=== PATIENT | female | born 1950 | race Caucasian/White ===

== ENCOUNTER → 2021-02-22 18:04 | Outpatient (CLI) | payer MEDICARE, SELFPAY ==
[2021-02-22 19:33] LABS: Basophils # 0.1 K/mm3 (0-0.2); Basophils % 1.4 % (0.1-2.0); Eosinophils # 0.5 K/mm3 (0.0-0.4); Eosinophils % 5.7 % (0.1-12.0); Hemoglobin 16.3 g/dL (12.2-16.2); Lymphocytes # 2.2 K/mm3 (0.7-4.5); Lymphocytes % 22.6 % (10-50); Mean Corpuscular HGB Conc 33.9 g/dL (31.8-35.4); Mean Corpuscular Hemoglobin 30.4 pg (27.0-31.2); Mean Corpuscular Volume 89.5 fl (81-99); Monocytes # 0.6 K/mm3 (0.1-1.0); Neutrophils # 6.1 K/mm3 (1.8-7.8); Neutrophils % 64.3 % (37.0-80.0); Platelet Count 281 K/mm3 (142-424); Red Blood Count 5.36 M/mm3 (4.20-5.40); Red Cell Distribution Width 14.4 % (11.5-17.5); White Blood Count 9.5 K/mm3 (4.8-10.8)
[2021-02-22 19:46] LABS: Alanine Aminotransferase 24 U/L (12-78); Albumin Level 4.5 g/dl (3.5-5.0); Albumin/Globulin Ratio 1.7 (1.1-1.8); Alkaline Phosphatase 71 U/L (38-126); Anion Gap 16.3 mEq/L (5-15); Aspartate Amino Transferase 31 U/L (14-36); Bilirubin,Total 0.8 mg/dl (0.2-1.3); Blood Urea Nitrogen 22 mg/dl (7-17); Calcium 9.8 mg/dl (8.4-10.2); Carbon Dioxide 30 mmol/L (22.0-30.0); Chloride 97 mmol/L (98-107); Chol/HDL Ratio 3.2 (1-3.5); Cholesterol 180 mg/dl (140-200); Estimated Glomerular Filt Rate 70 ml/min (>60); GFR (African American) 85 ML/MIN (>60); Globulin 2.6 g/dL (1.3-3.2); Glucose 76 mg/dl (74-100); HDL Cholesterol 57 mg/dl (40-60); Potassium 4.3 mmoL/L (3.5-5.1); Sodium 139 mmol/L (136-145); Total Protein,Serum 7.1 g/dl (6.3-8.2); Triglycerides 82 mg/dl (30-150); VLDL Cholesterol 16 mg/dL (0-40)
[2021-02-22 20:16] LABS: Thyroid Stimulating Hormone 4.04 uIU/mL (0.465-4.68)
== END ==
PROVIDERS: Visit Provider Family Medicine
DX: Z00.00 Encounter for general adult medical examination without abnormal findings (principal); R09.89 Other specified symptoms and signs involving the circulatory and respiratory systems; I10 Essential (primary) hypertension; Z79.899 Other long term (current) drug therapy
CPT/HCPCS: 80053; 80061; 84443; 85025

== ENCOUNTER → 2023-02-21 11:00 | Outpatient (CLI) | payer MEDICARE, SELFPAY ==
[2023-02-21 18:17] LABS: Basophils # 0.1 K/mm3 (0-0.2); Basophils % 1.1 % (0.1-2.0); Eosinophils # 0.7 K/mm3 (0.0-0.4); Eosinophils % 8.4 % (0.1-12.0); Hematocrit 48.9 % (37.0-47.0); Hemoglobin 15.5 g/dL (12.2-16.2); Lymphocytes # 1.9 K/mm3 (0.7-4.5); Lymphocytes % 23.6 % (10-50); Mean Corpuscular HGB Conc 31.6 g/dL (31.8-35.4); Mean Corpuscular Hemoglobin 28.8 pg (27.0-31.2); Mean Corpuscular Volume 91.1 fl (81-99); Mean Platelet Volume 9.6 fl (7.4-10.4); Monocytes # 0.6 K/mm3 (0.1-1.0); Neutrophils # 4.8 K/mm3 (1.8-7.8); Neutrophils % 59.9 % (37.0-80.0); Platelet Count 331 K/mm3 (142-424); Red Blood Count 5.37 M/mm3 (4.20-5.40); Red Cell Distribution Width 14.6 % (11.5-17.5)
[2023-02-21 18:34] LABS: Alanine Aminotransferase 21 U/L (12-78); Albumin Level 4.6 g/dl (3.5-5.0); Albumin/Globulin Ratio 1.4 (1.1-1.8); Alkaline Phosphatase 85 U/L (38-126); Anion Gap 12.5 mEq/L (5-15); Aspartate Amino Transferase 29 U/L (14-36); Bilirubin,Total 0.8 mg/dl (0.2-1.3); Blood Urea Nitrogen 28 mg/dl (7-17); Calcium 9.9 mg/dl (8.4-10.2); Carbon Dioxide 30 mmol/L (22.0-30.0); Chloride 102 mmol/L (98-107); Cholesterol 181 mg/dl (140-200); Estimated Glomerular Filt Rate 61 ml/min (>60); GFR (African American) 74 ML/MIN (>60); Globulin 3.3 g/dL (1.3-3.2); Glucose 108 mg/dl (74-100); HDL Cholesterol 61 mg/dl (40-60); Potassium 4.5 mmoL/L (3.5-5.1); Sodium 140 mmol/L (136-145); Total Protein,Serum 7.9 g/dl (6.3-8.2); Triglycerides 134 mg/dl (30-150); VLDL Cholesterol 27 mg/dL (0-40)
[2023-02-21 18:45] LABS: Direct LDL Cholesterol 81.45 mg/dL (100-129)
[2023-02-21 19:03] LABS: Thyroid Stimulating Hormone 3.54 uIU/mL (0.465-4.68)
== END ==
PROVIDERS: PCP Family Medicine; Visit Provider Family Medicine
DX: Z00.00 Encounter for general adult medical examination without abnormal findings (principal); I10 Essential (primary) hypertension; Z79.899 Other long term (current) drug therapy
CPT/HCPCS: 80053; 80061; 84443; 85025

== ENCOUNTER 2024-05-17 11:40 | Outpatient (CLI) | payer MEDICARE, SELFPAY ==
[2024-05-17 19:46] LABS: Basophils # 0.1 K/mm3 (0-0.2); Basophils % 0.9 % (0.1-2.0); Eosinophils # 0.4 K/mm3 (0.0-0.4); Eosinophils % 4.3 % (0.1-12.0); Hematocrit 45.5 % (37.0-47.0); Hemoglobin 14.9 g/dL (12.2-16.2); Lymphocytes # 1.8 K/mm3 (0.7-4.5); Lymphocytes % 19.5 % (10-50); Mean Corpuscular HGB Conc 32.7 g/dL (31.8-35.4); Mean Corpuscular Hemoglobin 30.3 pg (27.0-31.2); Mean Corpuscular Volume 92.6 fl (81-99); Mean Platelet Volume 9.6 fl (7.4-10.4); Monocytes # 0.5 K/mm3 (0.1-1.0); Monocytes % 5.8 % (1.7-9.3); Neutrophils # 6.3 K/mm3 (1.8-7.8); Neutrophils % 69.5 % (37.0-80.0); Platelet Count 301 K/mm3 (142-424); Red Blood Count 4.91 M/mm3 (4.20-5.40); Red Cell Distribution Width 14.1 % (11.5-17.5); White Blood Count 9.1 K/mm3 (4.8-10.8)
[2024-05-17 20:45] LABS: Alanine Aminotransferase 37 U/L (12-78); Albumin Level 4.2 g/dl (3.5-5.0); Albumin/Globulin Ratio 1.5 (1.1-1.8); Alkaline Phosphatase 61 U/L (38-126); Anion Gap 9.6 mEq/L (5-15); Aspartate Amino Transferase 36 U/L (14-36); Bilirubin,Total 0.7 mg/dl (0.2-1.3); Blood Urea Nitrogen 20 mg/dl (7-17); Calcium 9.6 mg/dl (8.4-10.2); Carbon Dioxide 28 mmol/L (22.0-30.0); Chloride 102 mmol/L (98-107); Chol/HDL Ratio 2.9 (1-3.5); Cholesterol 150 mg/dl (140-200); Estimated Glomerular Filt Rate 70 ml/min (>60); GFR (African American) 84 ML/MIN (>60); Globulin 2.8 g/dL (1.3-3.2); Glucose 97 mg/dl (74-100); HDL Cholesterol 52 mg/dl (40-60); Potassium 3.6 mmoL/L (3.5-5.1); Sodium 136 mmol/L (136-145); Triglycerides 114 mg/dl (30-150); VLDL Cholesterol 23 mg/dL (0-40)
[2024-05-17 20:56] LABS: Direct LDL Cholesterol 67.48 mg/dL (100-129)
[2024-05-17 21:16] LABS: Thyroid Stimulating Hormone 3.48 uIU/mL (0.465-4.68)
== END 2024-05-17 23:59 | disposition home or self-care (01) ==
LOC: LAB.DROPOF 05-18 10:05
PROVIDERS: PCP Family Medicine; Visit Provider Family Medicine
DX: I10 Essential (primary) hypertension (principal); I48.91 Unspecified atrial fibrillation; E07.9 Disorder of thyroid, unspecified; Z87.891 Personal history of nicotine dependence; J45.40 Moderate persistent asthma, uncomplicated
CPT/HCPCS: 80053; 80061; 84443; 85025

== ENCOUNTER 2025-04-06 11:35 | Outpatient (CLI) | payer MEDICARE, SELFPAY ==
[2025-04-06 16:51] LABS: Hematocrit 45.4 % (37.0-47.0); Hemoglobin 14.2 g/dL (12.2-16.2); Immature Granulocytes % 0.4 %; Mean Corpuscular HGB Conc 31.3 g/dL (31.8-35.4); Mean Corpuscular Hemoglobin 28.6 pg (27.0-31.2); Mean Corpuscular Volume 91.5 fl (81-99); Nucleated Red Blood Cells % 0 %; Platelet Count 296 K/mm3 (142-424); Red Blood Count 4.96 M/mm3 (4.20-5.40); Red Cell Distribution Width-SD 49.4 fL; White Blood Count 10.8 K/mm3 (4.8-10.8)
[2025-04-06 18:37] LABS: Albumin Level 4.3 g/dl (3.5-5.0); Chloride 104 mmol/L (98-107); Potassium 4.7 mmoL/L (3.5-5.1); Sodium 141 mmol/L (136-145)
[2025-04-06 18:39] LABS: Blood Urea Nitrogen 16 mg/dl (7-17); Creatinine,Serum 0.90 mg/dl (0.52-1.04); Estimated Glomerular Filt Rate 61 ml/min (>60); GFR (African American) 73 ML/MIN (>60)
[2025-04-06 18:40] LABS: Alanine Aminotransferase 14 U/L (12-78); Albumin/Globulin Ratio 1.5 (1.1-1.8); Alkaline Phosphatase 80 U/L (38-126); Anion Gap 12.7 mEq/L (5-15); Aspartate Amino Transferase 27 U/L (14-36); Bilirubin,Total 0.9 mg/dl (0.2-1.3); Calcium 9.8 mg/dl (8.4-10.2); Carbon Dioxide 29 mmol/L (22.0-30.0); Cholesterol 169 mg/dl (140-200); Globulin 2.8 g/dL (1.3-3.2); Glucose 95 mg/dl (74-100); HDL Cholesterol 48 mg/dl (40-60); Total Protein,Serum 7.1 g/dl (6.3-8.2); Triglycerides 107 mg/dl (30-150)
[2025-04-06 18:56] LABS: Free T4 (Free Thyroxine) 1.57 ng/dl (0.78-2.19)
[2025-04-06 19:30] LABS: Thyroid Stimulating Hormone 4.80 uIU/mL (0.465-4.68)
[2025-04-06 19:34] LABS: Hepatitis C Ab Qual. W/ RFX NEGATIVE (Negative)
--- OUTSIDE RECORDS SUMMARY | 2025-04-07 12:45 | XMS_ITS | Encounter Summary ---
Author Organization [facility] [place] [address] Care Team Providers Care Employee Communications Manager Name Role Phone Leonides Foster MD Primary Care Provider [phone] Patricia Garcias DPM Unavailable Unav ailable Encounter Details Date Type Department Care Team (Late st Contact Info) Description 01/03/2022 Patient Outreach [facility] [address] [place] [address] Moraima Peterson, Employment Programs Analyst Social History Tobacco Use Types Packs/Day Years Used Date Smoking Tobacco: Former Cigarettes 1 30 1 - 05/18/2015 Smokeless Tobacco: Former Quit: 11/02/2014 Comments:quit 6 years ago Alcohol Use Standard Drinks/Week Comments No 0 (1 standard drink = 0.6 oz pur e alcohol) Comments No Sex and Gender Information Value Date Recorded Sex Assigned at Not on file Legal Sex Female 8:16 PM EDT Gender Identity Not on file Sexual Orientation Not on file documented as of this encounter Functional Status * Is the person deaf or does he/she have serious difficulty hearing? Answer Date of Assessment Author No 10/31/2020 1:06 PM EDT Julianna Banks RN * Is the person blind or does he/she have serious difficulty seeing even when wearing glasses? Answer Date of Assessment Author No 10/31/2020 1:06 PM EDT [place], Julianna R, RN * Does this person have serious difficulty walking or climbing stairs? Answer Date of Assessment Author No 10/31/2020 1:06 PM EDT Julianna Banks RN * Does this person have difficulty dressing or bathing? Answer Date of Assessment Author No 10/31/2020 1:06 PM EDT Julianna Banks RN * Because of a physical, mental or emotional condition, does this person have difficulty doing errands alone such as visiting a doctor's office or shopping? Answer Date of Assessment Author No 10/31/2020 1:06 PM EDT Julianna Banks RN documented as of this encounter Mental Status * Because of a physical, mental or emotional condition, does this person have serious difficulty concentrating, remembering or making decisions? Answer Entry Date Author No 10/31/2020 1:06 PM EDT Julianna Banks RN documented in this encounter Plan of Treatment Not on file documented as of this encounter Visit Diagnoses Not on filedocumented in this encounter Additional Health Concerns Infection Onset Date Last Indicated Resolved Time R/O COVID-19 07/24/2022 07/24/2022 07/24/2022 12:1 3 PM EST INFLUENZA 07/24/2022 07/24/2022 08/08/2022 10:1 2 PM EST Assessment Noted Time A fall risk assessment has been complete d for the patient 12/08/2020 9:27 AM EDT documented as of this encounter Care Teams Employee Communications Manager Relationship Specialty Start Date End Date Leonides Foster MD PCP - General Family Medicine 11/24/15 Patricia Garcias DPM [facility] 04/02/16 documented as of this encounter
--- OUTSIDE RECORDS SUMMARY | 2025-04-07 12:45 | XMS_ITS ---
Author Organization Unknown TREATMENT PLAN Planned Care Start Date Provider Encounter for Check-up [phone] [facility]
--- OUTSIDE RECORDS SUMMARY | 2025-04-07 12:46 | XMS_ITS | Continuity of Care Document ---
Author Organization [facility] Address [address] [place] [address] Phone Care Team Providers Care Brush Material Preparer Name Role Phone Leonides Foster MD Primary Care Provider [phone] Patricia Garcias DPM Unavailable Unav ailable Encounters Date Type Department Care Team Description 07/07/2023 10:15 AM EST Office Visit [facility] [address] [place] [address] Mason Garcia MD Asthma-COPD overlap syndrome (HCC) (Primary Dx); Post-nasal drip; Chronic respiratory failure with hypoxia (HCC); COPD with acute exacerbation (HCC) 06/27/2023 9:40 AM EST - 06/27/2023 11:59 PM EST Hospital Encounter [facility] Mammography [address] [place] [address] Leonides Foster MD Encounter for screening mammogram for malignant neoplasm of breast Discharge Disposition: Home or Self Care 03/08/2023 Travel 03/08/2023 6:26 PM EDT - 03/08/2023 9:41 PM EDT Emergency [facility] Emergency [address] [place] [address] Kong White MD Rib contusion, right, initial encounter (Primary Dx); Contusion of abdominal wall, initial encounter; Fall, initial encounter; Diverticulosis; UPJ (ureteropelvic junction) obstruction; Renal cyst; Hepatic cyst; Calculus of gallbladder without cholecystitis without obstruction Discharge Disposition: Home or Self Care 01/01/2023 12:30 PM EDT Office Visit [facility] [address] [place] [phone] Mason Garcia MD Asthma-COPD overlap syndrome (HCC) (Primary Dx); Post-nasal drip 12/13/2022 Orders Only [facility] [address] [address] Rosic, Dhiraj, FISH CONSERVATIONIST Obstructive sleep apnea (Primary Dx) 12/13/2022 10:00 AM EDT Office Visit [facility] [address] [address] Rosic, Dhiraj, FISH CONSERVATIONIST Obstructive sleep apnea (Primary Dx); Tiredness; Asthma-COPD overlap syndrome (HCC); COPD, group D, by GOLD 2017 classification (HCC); Essential hypertension; Atrial fibrillation with rapid ventricular response (HCC); Hypothyroidism, unspecified type 10/30/2022 Orders Only [facility] Pulmonology [facility] [address] [place] [address] [place] [phone] Mason Garcia MD Screening for malignant neoplasm of respiratory organ (Primary Dx); Personal history of tobacco use, presenting hazards to health 10/30/2022 Travel 10/30/2022 8:08 AM EDT - 10/30/2022 11:59 PM EDT Hospital Encounter [facility] [place] [address] [place] [address] Mason Garcia MD Lung nodule Discharge Disposition: Home or Self Care 09/10/2022 10:30 AM EST Office Visit [facility] NPT[facility] [address] [place] [phone] Anel Hung DO PAF (paroxysmal atrial fibrillation) (HCC) (Primary Dx) 08/08/2022 Telephone [facility] ECHO VAS ATTN: Appointments in this department are performed at various locations in the community on our Cardiovascular mobile health unit. You can look online to verify your site or call [phone]. [place] [phone] Becky Oakes RN Results (Results of chest ct on 07/29); Schedule Appointment (Schedule f/u CT for 3 mos ) 08/06/2022 Orders Only [facility] [address] [phone] Mason Garcia MD Lung nodule (Primary Dx) 07/24/2022 11:35 AM EST - 07/31/2022 4:22 PM EST Hospital Encounter [facility] [address] [address] [place] [address] Christen Benavides MD Boyalakuntla, Dhanunjay S, Influenza A (Primary Dx); Respiratory distress Discharge Disposition: Home or Self Care 07/30/2022 Telephone [facility] [address] [phone] Mason Garcia MD Samples 07/24/2022 Travel 07/24/2022 10:45 AM EST Office Visit [facility] [address] [address] Usha Chavira, VONDA Hypoxia (Primary Dx); Tachypnea; Tachycardia; Exposure to the flu 06/12/2022 Telephone [facility] [address] [phone] Mason Garcia MD Samples 05/30/2022 12:30 PM EDT Office Visit [facility] [address] [place] [address] Mason Garcia MD Asthma-COPD overlap syndrome (HCC) (Primary Dx) 05/13/2022 Travel 05/13/2022 8:06 AM EDT - 05/13/2022 11:59 PM EDT [facility] [address] [place] [address] Mason Garcia MD Personal history of nicotine dependence Discharge Disposition: Home or Self Care 05/06/2022 Telephone [facility] [address] [phone] Mason Garcia MD Samples 04/25/2022 Travel 04/25/2022 10:21 AM EDT - 04/25/2022 10:42 AM EDT Hospital Encounter [facility] [address] [place] [phone] Hypothyroidism, unspecified type (Primary Dx) Discharge Disposition: Home or Self Care 04/25/2022 10:43 AM EDT - 04/25/2022 11:59 PM EDT Hospital Encounter [facility] [address] [place] [address] Leonides Foster MD Encounter for screening mammogram for malignant neoplasm of breast Discharge Disposition: Home or Self Care 04/23/2022 Telephone [facility] [address] [phone] Mason Garcia MD Samples 03/26/2022 Telephone [facility] [address] [phone] Mason Garcia MD Samples 01/03/2022 Patient Outreach [facility] [place] [address] [place] [address] Moraima Peterson, Middle School Music Teacher 12/14/2021 10:30 AM EDT Office Visit [facility] [address] [place] [address] Dhiraj Ramsey APRN Obstructive sleep apnea (Primary Dx); Essential hypertension; Hypothyroidism, unspecified type; Other secondary pulmonary hypertension (HCC); Chronic respiratory failure with hypoxia (HCC); Smokers' cough (HCC); COPD, mild (HCC) 11/28/2021 Telephone [facility] [address] [address] Mason Garcia MD Samples 11/13/2021 Travel 11/13/2021 10:15 AM EDT Office Visit [facility] [address] [place] [address] Mason Garcia MD Asthma-COPD overlap syndrome (HCC) (Primary Dx); Personal history of nicotine dependence 10/04/2021 Telephone [facility] [address] [address] Mason Garcia MD Samples 07/26/2021 Telephone [facility] [address] [address] Mason Garcia MD Samples 07/26/2021 Travel 07/26/2021 9:45 AM EST Telemedicine [facility] [address] [place] [address] Mason Garcia MD Asthma-COPD overlap syndrome (HCC) (Primary Dx); COPD, group D, by GOLD 2017 classification (HCC); Chronic respiratory failure with hypoxia (HCC); Other secondary pulmonary hypertension -due to COPD, sleep apnea, obesity 05/28/2021 Telephone [facility] [address] [address] Mason Garcia MD Samples 05/17/2021 Travel 05/17/2021 7:00 PM EDT - 05/17/2021 11:59 PM EDT Hospital Encounter [facility] [address] [place] [address] Obstructive sleep apnea Discharge Disposition: Home or Self Care 05/01/2021 Telephone [facility] [address] [address] Mason Garcia MD Other 05/01/2021 10:47 AM EDT - 05/01/2021 11:59 PM EDT Hospital Encounter [facility] [address] [place] [address] Leonides Foster MD Encounter for screening mammogram for malignant neoplasm of breast Discharge Disposition: Home or Self Care 05/01/2021 10:15 AM EDT Office Visit [facility] [address] [address] Cass Leon MD Obstructive sleep apnea (Primary Dx); Centrilobular emphysema (HCC) 04/06/2021 7:00 PM EDT - 04/06/2021 11:59 PM EDT Hospital Encounter [facility] Sleep [facility] Center [address] [place] [address] Obstructive sleep apnea (Primary Dx); Tiredness; Snoring Discharge Disposition: Home or Self Care 04/05/2021 Telephone [facility] Pulmon[facility] [address] [address] Mason Garcia MD Other 03/12/2021 Travel 03/12/2021 11:00 AM EDT Office Visit [facility] [address] [place] [phone] Mason Garcia MD COPD, group D, by GOLD 2017 classification (HCC) (Primary Dx); Asthma-COPD overlap syndrome (HCC); Mild pulmonary hypertension (HCC); LULÚ (obstructive sleep apnea) 02/26/2021 Telephone [facility] [address] [place] [phone] Mason Garcia MD Medication Management 02/21/2021 Travel 02/21/2021 9:24 AM EDT - 02/21/2021 11:59 PM EDT Hospital Encounter [facility] E[facility] [address] [place] [address] Mason Garcia MD Shortness of breath ; Decreased diffusion capacity of lung; Cor pulmonale (HCC) Discharge Disposition: Home or Self Care 02/20/2021 12:00 PM EDT Office Visit [facility] [address] [address] Cass Leon MD Tiredness (Primary Dx); Snoring; Centrilobular emphysema (HCC) 02/08/2021 Telephone [facility] [address] [place] [phone] Mason Garcia MD Other 02/08/2021 Telephone [facility] [address] [address] Mason Garcia MD Schedule Appointment 02/06/2021 Telephone [facility] [address] [address] Mason Garcia MD Schedule Appointment 01/26/2021 Telephone [facility] [address] [address] Mason Garcia MD Results 01/19/2021 Travel 01/19/2021 Telephone [facility] [address] [phone] Mason Garcia MD Medication Question 01/19/2021 1:16 PM EDT - 01/19/2021 11:59 PM EDT Hospital Encounter [facility] [address] [facility] [place] [address] Mason Garcia MD Asthma-COPD overlap syndrome (HCC); COPD, group D, by GOLD 2017 classification (HCC); Decreased diffusion capacity of lung; Cor pulmonale (HCC) Discharge Disposition: Home or Self Care 01/09/2021 Travel 01/09/2021 10:45 AM EDT Office Visit [facility] [address] [place] [address] Mason Garcia MD COPD with acute exacerbation (HCC) (Primary Dx); Asthma-COPD overlap syndrome (HCC); COPD, group D, by GOLD 2017 classification (HCC); LULÚ (obstructive sleep apnea); Decreased diffusion capacity of lung; Cor pulmonale (HCC); Shortness of breath 12/08/2020 Travel 12/08/2020 9:20 AM EDT Office Visit [facility] [address] [facility] [address] [place] [address] Solitario Gutiérrez MD Edema leg (Primary Dx); Essential hypertension; COPD with acute exacerbation (HCC); Wheezing; Former smoker; Smoking greater than 30 pack years; Moderate persistent asthma with acute exacerbation 12/05/2020 Telephone [facility] [address] [facility] [address] [place] [address] Antonette Da Silva, YOGESH Other 11/22/2020 Travel 11/22/2020 12:49 PM EDT - 11/22/2020 11:59 PM EDT Hospital Encounter [facility] P[facility] LAB [address] [place] [address] COPD with acute exacerbation (HCC) Discharge Disposition: Home or Self Care 11/09/2020 Travel 11/09/2020 Telephone [facility] [address] [facility] [address] [place] [phone] Jovany Taylor, Other (referral) 10/24/2020 6:28 PM EDT - 10/31/2020 3:11 PM EDT Hospital Encounter [facility] [address] [place] [address] Anselmo Jennings MD Wong, Chris, MD COPD exacerbation (HCC) (Primary Dx); Hypoxia; COPD with acute exacerbation (HCC) Discharge Disposition: Home or Self Care 10/24/2020 Travel 01/27/2019 2:56 PM EDT - 01/27/2019 11:59 PM EDT Hospital Encounter [place] [place] [facility] [address] [place] [address] Leonides Foster MD Encounter for screening mammogram for malignant neoplasm of breast Discharge Disposition: Home or Self Care 01/23/2018 11:58 AM EDT - 01/23/2018 11:59 PM EDT Hospital Encounter [facility] [place] [facility] [address] [place] [address] Leonides Foster MD Breast density Discharge Disposition: Home or Self Care 01/12/2018 Telephone [facility] [place] [facility] [address] [place] [address] Alice Robison, Clerical Staff Abnormal Radiology 01/09/2018 11:05 AM EDT - 01/09/2018 11:59 PM EDT Hospital Encounter [facility] [place] [address] [place] [address] Leonides Foster MD Encounter for screening mammogram for malignant neoplasm of breast Discharge Disposition: Home or Self Care 01/09/2018 10:00 AM EDT - 01/09/2018 11:04 AM EDT Hospital Encounter [facility] [address] [place] [address] Leonides Foster MD Peripheral vascular disease, unspecified Discharge Disposition: Home or Self Care 05/11/2017 12:07 PM EDT - 05/11/2017 2:41 PM EDT Emergency [facility] [place] [facility] [address] [place] [address] Eli Sebastian MD Right otitis media, unspecified chronicity, unspecified otitis media type (Primary Dx); COPD exacerbation (HCC) Discharge Disposition: Home or Self Care 01/15/2017 9:30 AM EDT - 01/15/2017 11:59 PM EDT Hospital Encounter [facility] [place] [facility] [address] [place] [address] Leonides Foster MD Encounter for screening mammogram for malignant neoplasm of breast Discharge Disposition: Home or Self Care 09/27/2016 10:06 AM EST - 09/27/2016 11:59 PM EST Hospital Encounter [place] [facility] [address] [place] [address] Leonides Foster MD Senile osteoporosis Discharge Disposition: Home or Self Care 04/02/2016 10:00 AM EDT Office Visit [facility] Podiatry [place] [address] [place] [address] Patricia Garcias, MARIELA Pain of toe of right foot (Primary Dx); Fracture of right foot, closed, initial encounter; Laceration 03/23/2016 10:00 AM EDT - 03/23/2016 11:50 AM EDT Emergency [facility] [place] [address] [facility] [address] [facility] [place] [address] Ravindra Doyle MD Foot laceration, right, initial encounter (Primary Dx); Closed nondisplaced fracture of distal phalanx of right great toe, initial encounter Discharge Disposition: Home or Self Care 01/25/2016 Telephone [facility] H[facility] [address] [place] [address] Carlos Alberto Crandall MD Release of Information 01/17/2016 9:32 AM EDT - 01/17/2016 11:59 PM EDT Hospital Encounter [facility] [place] [facility] [address] [facility] [place] [address] Leonides Foster MD Visit for screening mammogram Discharge Disposition: Home or Self Care 12/25/2015 10:45 AM EDT Office Visit [facility] H[facility] [address] [place] [address] Carlos Alberto Crandall MD Family history of early CAD (Primary Dx); Essential hypertension; Abnormal ECG; Smoking greater than 30 pack years; Moderate persistent asthma with acute exacerbation; Wheezing 12/25/2015 9:19 AM EDT - 12/25/2015 11:59 PM EDT Hospital Encounter [facility] ECHO [address] [place] [address] Carlos Alberto Crandall MD Moderate persistent asthma with acute exacerbation; Abnormal ECG; Essential hypertension; Family history of early CAD Discharge Disposition: Home or Self Care 12/25/2015 9:19 AM EDT - 12/25/2015 11:59 PM EDT Hospital Encounter [facility] ECHO [address] [place] [address] Carlos Alberto Crandall MD Moderate persistent asthma with acute exacerbation; Abnormal ECG; Essential hypertension; Family history of early CAD Discharge Disposition: Home or Self Care 12/13/2015 9:30 AM EDT Office Visit [facility] NPTFTT [address] [place] [phone] Carlos Alberto Crandall MD Essential hypertension (Primary Dx); Family history of early CAD; Abnormal ECG; Wheezing 12/08/2015 Telephone [facility] H[facility] [address] [place] [address] Carlos Alberto Crandall MD Leg Swelling; Shortness of Breath (History of COPD) 11/27/2015 Telephone [facility] H[facility]V [address] [phone] Carlos Alberto Crandall MD Visit Follow Up 11/24/2015 8:00 AM EDT Office Visit [facility] H[facility] [address] [place] [address] Carlos Alberto Crandall MD Moderate persistent asthma with acute exacerbation (Primary Dx); Abnormal ECG; Essential hypertension; Family history of early CAD 08/06/2015 3:19 PM EST - 08/07/2015 4:09 PM EST Hospital Encounter [facility] T[facility] [address] [address] [place] [address] Neymar Damon DO Gaston, Richard L, MD Bronchitis (Primary Dx); Wheezing; Asthma exacerbation in COPD (HCC); Allergic reaction caused by a drug Discharge Disposition: Home or Self Care 05/13/2015 1:29 PM EDT - 05/13/2015 2:40 PM EDT Emergency [facility] [address] [place] [address] Demarcus Musa MD Stomatitis (Primary Dx) Discharge Disposition: Home or Self Care 11/29/2014 11:00 AM EDT - 11/29/2014 11:59 PM EDT Hospital Encounter [facility] VASCULAR [facility] [address] [place] [address] Wilner Barajas MD Peripheral vascular disease, unspecified Discharge Disposition: Home or Self Care 11/16/2014 1:53 PM EDT - 11/16/2014 5:50 PM EDT Emergency [facility] Emergency [address] [place] [address] Love, Art A, MD Shortness of breath (Primary Dx) Discharge Disposition: Home or Self Care 01/15/2012 10:45 AM EDT - 01/15/2012 11:59 PM EDT Hospital Encounter Mobile Mammography Other Location View online schedule for mobile van location [phone] Wilner Barajas MD Other screening mammogram Discharge Disposition: Home or Self Care 10/04/2009 Hospital Encounter [facility] Discharge Disposition: Home or Self Care 09/20/2008 Hospital Encounter [facility] Generic, Historical Provider 12/21/2007 7:52 PM EDT - 12/22/2007 6:11 PM EDT Hospital Encounter [facility] [id number] [facility] Generic, Historical Provider 05/28/2007 6:53 PM EDT - 05/28/2007 8:13 PM EDT Emergency [facility] EMERGENCY [facility] Generic, Historical Provider 01/27/2003 Hospital Encounter [facility] Generic, Historical Provider 05/03/2002 8:10 PM EDT - 05/03/2002 9:18 PM EDT Emergency [facility] EMERGENCY [facility] Generic, Historical Provider 02/26/2001 Hospital Encounter [id number] Generic, Historical Provider Allergies Active Allergy Reactions Criticality Noted Date Comments Penicillins 05/13/2015 Corticosteroids (Glucocorticoids) Rash Medications montelukast (SINGULAIR) 10 mg Oral Tablet Take by mouth every evening. Active albuterol-ipratr opium (DUO-NEB) 0.5 mg-3 mg(2.5 mg base)/3 mL Inhl Solution for Nebulization Take 3 mL by nebulization 0800, 1200, 1600, 2000. Active albuterol (PROVENTIL HFA;VENTOLIN HFA) 90 mcg/actuation Inhl HFA Aerosol Inhaler Inhale 2 Puffs into the lungs once. Active losartan-hydroch lorothiazide (HYZAAR) 100-25 mg Oral Tablet Take 1 Tab by mouth daily. 1 Active calcium carbonate/vitami n D3 (VITAMIN D-3 ORAL) Take by mouth. Activ e guaiFENesin (ROBITUSSIN) 100 mg/5 mL Oral Liquid Take 10 mL by mouth every 4 hours as needed for Congestion. 2 Active Additional Information Patient not taking.Reported on 09/10/2022 LEVOthyroxine (SYNTHROID) 50 mcg Oral Tablet Take 1 Tablet by mouth daily pulmonary disease specialist. 2 Active apixaban (ELIQUIS) 5 mg Oral Tablet Take by mouth 2 times daily. Active dilTIAZem 180 mg Oral Capsule, Sust. Release 24 hr Take 180 mg by mouth daily. Active triamcinolone (NASACORT) 55 mcg Nasl Aerosol, SprayIndications :Post-nasal drip 1 [place] by Nasal route 2 times daily. 16.9 mL 3 3 Active fluticasone-umec lidin-vilanter (TRELEGY ELLIPTA) 200-62.5-25 mcg Inhl Disk with DeviceIndication s:Asthma-COPD overlap syndrome (HCC) Inhale 1 Puff into the lungs daily at 0900. 90 Each 4 3 Active Oxygen and Equipment MISCELLANEOUIndi cations:Asthma-C OPD overlap syndrome (HCC),COPD with acute exacerbation (HCC) Evaluation for POC DX code - j44.9 1 Each 3 Active Active Problems Problem Noted Date Diagnosed Date Atrial fibrillation with rapid ventricular respo nse 07/26/2022 Influenza A 07/24/2022 Acute on chronic respiratory failure with hypoxi a 07/24/2022 Hyponatremia 07/24/2022 Elevated brain natriuretic peptide (BNP) level 1 09/24/2021 SIRS (systemic inflammatory response syndrome) 1 09/24/2021 Asthma-COPD overlap syndrome 07/26/2021 Assessment & Plan (07/26/2021 10:05 AM EST): Symptomatically stable. No further exacerbations. Using Trelegy 200 mcg 1 puff daily samples. Alternatively can switch to Breztri 160 mcg 2 puffs twice daily. Continue Singulair 10 mg daily. Albuterol as needed. Refused Covid 19 vaccination despite counseling. Other secondary pulmonary hypertension 1 Overview (07/26/2021): Group 3 due to COPD, sleep apnea, obesity Assessment & Plan (07/26/2021 10:03 AM EST): Continue management of COPD, obstructive sleep apnea. Encouraged weight loss. COPD, group D, by GOLD 2017 classification 07/26 Assessment & Plan (07/26/2021 10:04 AM EST): Well-controlled. 1 exacerbation so far this year. Continue Trelegy/Breztri which is available. Patient dependent on samples. Albuterol as needed. Edema leg 12/08/2020 Chronic respiratory failure with hypoxia 021 Overview (07/26/2021): On 2.5 L with rest, exertion and at night Assessment & Plan (07/26/2021 10:02 AM EST): Continue the same as above. No changes. COPD with acute exacerbation 10/29/2020 Acquired hypothyroidism 10/29/2020 Abnormal ECG 11/24/2015 Essential hypertension 11/24/2015 Family history of early CAD 11/24/2015 Resolved Problems Problem Noted Date Diagnosed Date Resolved Date Former smoker 10/29/2020 07/26/2021 Allergic reaction caused by a drug 08/06/2015 10/29/2020 Wheezing 08/06/2015 07/26/2021 Asthma exacerbation in COPD 08/06/2015 08/06/2015 Acute bronchitis 08/06/2015 07/26/2021 Moderate persistent asthma w ith acute exacerbation 08/06/2015 07/26/2021 Smoking greater than 30 pack years 08/06/2015 07/26/2021 Immunizations Immunization Administration Dates Next Due Influenza Patient Reported 05/25/2015 Family History Medical History Relation Name Comments Sleep Apnea Other Relation Name Status Comments Father Mother Alive Other Social History Smoking Status as of 04/07/2025 Tobacco Use Types Packs/Day Years Used Date Smoking Tobacco: Never Assessed Sex and Gender Information Value Date Recorded Sex Assigned at Not on file Legal Sex Female 8:16 PM EDT Gender Identity Not on file Sexual Orientation Not on file Last Filed Vital Signs Vital Sign Reading Time Taken Comments Blood Pressure 122/80 07/07/2023 10:06 AM EST Pulse 85 07/07/2023 10:06 AM EST Temperature 36.6 C (97.8 F) 03/08/2023 5:03 PM EDT Respiratory Rate 24 03/08/2023 6:49 PM EDT Oxygen Saturation 91% 07/07/2023 10:06 AM EST ra@rest Inhaled Oxygen Concentration - - Weight 78.5 kg (173 lb) 07/07/2023 10:06 AM EST Height 157.5 cm (5' 2 ) 07/07/2023 10:06 AM EST Body Mass Index 31.64 07/07/2023 10:06 AM EST Plan of Treatment Not on file Procedures Procedure Name Priority Date/Time Associated Diagnosis Comments MM MAMMO DIGITAL MORE SCREEN BILAT Routine 06/27/2023 9:55 AM EST Encounter for screening mammogram for malignant neoplasm of breast CT CHEST ABDOMEN PELVIS W CONTRAST STAT 03/08/2023 7:[address] CERVICAL SPINE WO CONTRAST STAT 03/08/2023 7:[address] HEAD WO CONTRAST STAT 03/08/2023 7:49 PM EDT BASIC METABOLIC PANEL STAT 03/08/2023 6:52 PM EDT CBC STAT 03/08/2023 6:52 PM EDT SALINE LOCK IV STAT 03/08/2023 6:[address] EJ LUNG NODULE FOLLOW UP Routine 10/30/2022 8:18 AM EDT Lung nodule ECG AND WAVEFORMS - TELEMETRY Routine 07/31/2022 7:00 AM EST ECG AND WAVEFORMS - TELEMETRY Routine 07/31/2022 6:00 AM EST ECG AND WAVEFORMS - TELEMETRY Routine 07/30/2022 7:27 PM EST ECG AND WAVEFORMS - TELEMETRY Routine 07/30/2022 7:[address] CHEST HIGH RESOLUTION WO CONTRAST LORETTA 07/29/2022 8:36 PM EST ECG AND WAVEFORMS - TELEMETRY Routine 07/29/2022 7:02 PM EST IP CONSULT TO PULMONOLOGY Routine 07/29/2022 12:22 PM EST Procedure Note - Bhanu Telles MD - 07/29/2022 5:09 PM ESTThis note is in progress. Patient: Shreya Restrpeo Date of Admission: 07/24/2022 Admitting Provider: Thad Dye DO Date of Consultation:07/29/2022 PULMONARY CRITICAL CARE MEDICINE PULMONARY CONSULT [facility] PULMONARY-CRITICAL CARE SERVICE Subsequent Hospital Care 07/29/2022 Bhanu Telles MD Reason for Consult: Wheezing HISTORY OF PRESENT ILLNESS: Shreya Restrepo is a 72 y.o. female patient with history of asthma copdoverlap syndrome presented with dyspnea, worsening over 4-5 days,cough-productive, congestion and worsens with exertion. Grandson had flu.She tested positive for flu. She was admitted for hypoxia andtachycardia. PAST MEDICAL HISTORY: Past Medical History: Diagnosis Date Asthma COPD (chronic obstructive pulmonary disease) (HCC) COPD with acute exacerbation (HCC) 10/29/2020 Hypertension Thyroid disease PAST SURGICAL HISTORY: Past Surgical History: Procedure Laterality Date DILATION AND CURETTAGE OF UTERUS FAMILY HISTORY: family history includes Sleep Apnea in an other family member. SOCIAL HISTORY: Social History Socioeconomic History Marital status: Spouse name: Not on file Number of children: 4 Years of education: Not on file Highest education level: Not on file Occupational History Not on file Tobacco Use Smoking status: Former Packs/day: 1.00 Years: 30.00 Pack years: 30.00 Types: Cigarettes Quit date: 05/18/2015 Years since quittin.2 Smokeless tobacco: Former Quit date: 11/02/2014 Tobacco comments: quit 6 years ago Substance and Sexual Activity Alcohol use: No Drug use: No Sexual activity: Not on file Other Topics Concern Not on file Social History Narrative Not on file Social Determinants of Health Financial Resource Strain: Not on file Food Insecurity: Not on file Transportation Needs: Not on file Physical Activity: Not on file Stress: Not on file Social Connections: Not on file Intimate Partner Violence: Not on file Housing Stability: Not on file reports that she quit smoking about 7 years ago. Her smoking use includedcigarettes. She has a 30.00 pack-year smoking history. She quit smokelesstobacco use about 7 years ago. Allergies: Corticosteroids (glucocorticoids) and Penicillins No current facility-administered medications on file prior to encounter. Current Outpatient Medications on File Prior to Encounter Medication Sig Dispense Refill albuterol (PROVENTIL HFA;VENTOLIN HFA) 90 mcg/actuation Inhl HFA AerosolInhaler Inhale 2 Puffs into the lungs once. albuterol-ipratropium (DUO-NEB) 0.5 mg-3 mg(2.5 mg base)/3 mL InhlSolution for Nebulization Take 3 mL by nebulization 0800, 1200, 1600,2000. amLODIPine (NORVASC) 10 mg Oral Tablet Take 10 mg by mouth daily. calcium carbonate/vitamin D3 (VITAMIN D-3 ORAL) Take by mouth. zdogtkznyvb-iyrovslsn-rsrrvglb (TRELEGY ELLIPTA) 100-62.5-25 mcg InhlDisk with Device Inhale 1 Puff into the lungs daily at 0900. LEVOthyroxine (SYNTHROID) 50 mcg Oral Tablet Take 1 Tab by mouth daily. losartan-hydrochlorothiazide (HYZAAR) 100-25 mg Oral Tablet Take 1 Tabby mouth daily. montelukast (SINGULAIR) 10 mg Oral Tablet Take by mouth every evening. Current Facility-Administered Medications: acetylcysteine (NAC) capsule 600 mg, 600 mg, Oral, BID, Kadeem Vargas MD, 600 mg at 07/29/22 0802 mometasone-formoterol (DULERA HFA) 100-5 mcg/actuation inhaler 2 Puff,2 Puff, Inhalation, RESP BID, 2 Puff at 07/28/222002 AND tiotropiumbromide (SPIRIVA RESPIMAT) inhalation mist 2 Puff, 2 Puff, Inhalation,RESP Daily, 2 Puff at 07/28/22 0752 AND albuterol (PROVENTILHFA;VENTOLIN HFA) inhaler 2 Puff, 2 Puff, Inhalation, PRN, Thad Dye S, DO albuterol (PROVENTIL) nebulizer solution 2.5 mg, 2.5 mg, Nebulization,PRN, Thad Dye S, DO, 2.5 mg at 07/28/222004 apixaban (ELIQUIS) tablet 5 mg, 5 mg, Oral, BID, Pivato, Anel R, DO, 5mg at 07/29/22 0802 dilTIAZem CD capsule 180 mg, 180 mg, Oral, Daily, Pivato, Anel R, DO,180 mg at 07/29/22 08 docusate sodium (COLACE) capsule 100 mg, 100 mg, Oral, BID, Kadeem Vargas MD, 100 mg at 07/28/221950 guaiFENesin (ROBITUSSIN) 100 mg/5 mL liquid 200 mg, 200 mg, Oral, Q4HPRN, Kadeem Vargas MD losartan (COZAAR) tablet 100 mg, 100 mg, Oral, Daily, 100 mg at109/29/21 0802 AND hydroCHLOROthiazide (HYDRODIURIL) tablet 25 mg, 25mg, Oral, Daily, Thad Dye S, DO, 25 mg at 07/29/22 0802 LEVOthyroxine (SYNTHROID) tablet 50 mcg, 50 mcg, Oral, DAILY EARLY AM,Kadeem Vargas MD, 50 mcg at 07/29/22 0534 montelukast (SINGULAIR) tablet 10 mg, 10 mg, Oral, QPM, Kadeem Vargas MD, 10 mg at 07/28/22 1612 nystatin (MYCOSTATIN) 100,000 unit/mL suspension 500,000 Units, 500,000Units, Oral, QID, Kadeem Vargas MD, 500,000 Units at 07/29/22 1506 ondansetron (ZOFRAN) tablet 4 mg, 4 mg, Oral, Q4H PRN ORondansetron (ZOFRAN) injection 4 mg, 4 mg, Intravenous, Q4H PRN, Kadeem Vargas MD pantoprazole (PROTONIX) 40 mg in sodium chloride 0.9% 10 mL injection,40 mg, Intravenous, Daily OR pantoprazole (PROTONIX) tablet 40 mg, 40mg, Oral, Daily, Kadeem Vargas MD, 40 mg at 07/29/22 0802 polyethylene glycol (GLYCOLAX, MIRALAX) packet 17 g, 17 g, Oral, BIDPRN, Kadeem Vargas MD predniSONE (DELTASONE) tablet 40 mg, 40 mg, Oral, Daily WM, 40 mg at109/29/21 0802 FOLLOWED BY [START ON 08/02/2022] predniSONE (DELTASONE)tablet 30 mg, 30 mg, Oral, Daily WM FOLLOWED BY [START ON 08/06/2022]predniSONE (DELTASONE) tablet 20 mg, 20 mg, Oral, Daily WM FOLLOWED BY[START ON 08/10/2022] predniSONE (DELTASONE) tablet 10 mg, 10 mg, Oral,Daily WM, Kadeem Vargas MD senna (SENOKOT) tablet 1-2 Tablet, 1-2 Tablet, Oral, Daily PRN, Kadeem Vargas MD sodium chloride 0.9% IV line flush 50 mL, 50 mL, Intravenous, PRN,Christen Benavides MD sodium chloride 0.9% syringe 5 mL, 5 mL, Intravenous, PRN, Christen Benavides MD, 5 mL at 07/26/222054 sodium chloride 3 % nebulizer solution, , Nebulization, PRN, Kadeem Vargas MD Immunization History Administered Date(s) Administered Influenza Patient Reported 05/25/2015 REVIEW OF SYSTEMS Constitutional: Negative for fever, chills, weight loss, positive forfatigue HENT: Negative for sore throat Eyes: Negative for redness Respiratory: Negative for hemoptysis, positive for dyspnea, wheezing,productive cough Cardiovascular: Negative for chest pain, positive for pedal edema Gastrointestinal: Negative for vomiting, diarrhea Genitourinary: Negative for hematuria Musculoskeletal: Negative for arthralgias Skin: Negative for rash Neurological: Negative for syncope Hematological: Negative for adenopathy Psychiatric/Behavorial: Negative for anxiety EXAMINATION Vital Signs:BP 158/80 (BP Location: Left arm, Patient Position: Sitting) Pulse 95 Temp 97.5 F (36.4 C) (Oral) Resp 20 Ht 5' 2 (1.575m) Wt 167 lb (75.8 kg) SpO2 91% No BMI 30.54kg/m Tmax:Temp (24hrs), Av.9 F (36.6 C), Min:97.4 F (36.3 C),Max:98.6 F (37 C) I/O:Last 24hr: Intake/Output Summary (Last 24 hours) at 07/29/2022 1709 Last data filed at 07/29/2022 1426 Gross per 24 hour Intake 1620 ml Output -- Net 1620 ml Constitutional Shreya is alert, well developed, well nourished, in no acutedistress [id number] normocephalic, atraumatic, sclera clear, PERRL, EOMI Neck supple with midline trachea, no tenderness Respiratory wheezes bilaterally Cardiovascular S1, S2 normal; no murmur, rub or gallop; regular rate andrhythm Abdomen soft, non-tender; bowel sounds normal; no masses, noorganomegaly Musculoskeletal-NeuroPsych no focal neurological deficits and alert,oriented x3 Extremities 1+ bilateral pedal edema DATA REVIEWED LAB RESULTS Lab Results Component Value Date WBC 19.1 (H) 07/27/2022 HGB 13.7 07/27/2022 HCT 42.3 07/27/2022 PLT 413 (H) 07/27/2022 Lab Results Component Value Date NA 140 07/27/2022 K 4.4 07/27/2022 CL 104 07/27/2022 CO2 26 07/27/2022 BUN 36 (H) 07/27/2022 CREATININE 0.89 07/27/2022 GLU 150 (H) 07/27/2022 No results for input(s): AST, ALT, LIPASE, BILIDIR, BILITOT, ALKPHOS inthe last 72 hours. Invalid input(s): AMYLASE, ALB Results for orders placed or performed during the hospital encounter of07/24/22 (from the past 336 hour(s)) [id number] A/B Collection Time: 07/24/22 11:35 AM Specimen: Nares; Swab Result Value Ref Range CORONAVIRUS [id number] Not Detected Not Detected Influenza A DNA Detected (A) Not Detected Influenza B DNA Not Detected Not Detected BLOOD CULTURE (NO STAIN) Collection Time: 07/24/22 1:35 PM Specimen: Blood, Venous Result Value Ref Range Culture Result No Growth at 120 hours. BLOOD CULTURE (NO STAIN) Collection Time: 07/24/22 1:49 PM Specimen: Blood, Venous Result Value Ref Range Culture Result No Growth at 120 hours. PULMONARY FUNCTION TESTING Results for orders placed or performed during the hospital encounter of11/22/20 PULMONARY FUNCTION TEST Result Value FVC_POST 1.97 FVC_PRE 1.64 (L) FVC_REF 2.47 FVC_LLN 1.79 FVC_Pre%REF 66 FVC_Post%REF 80 FVC_%Chng 20 FEV1_POST 0.76 (L) FEV1_PRE 0.76 (L) FEV1_REF 1.92 FEV1_LLN 1.38 FEV1_Pre%REF 40 FEV1_Post%REF 40 FEV1_%Chng -0 FEV1/FVC_POST 38.68 (L) FEV1/FVC_PRE 46.53 (L) FEV1/FVC_REF 78 FEV1/FVC_LLN 64 FEV1/FVC_Pre%REF 60 FEV1/FVC_Post%REF 49 FEV1/FVC_%Chng -17 OVZ72-30%_POST 0.19 (L) OLV99-16%_PRE 0.19 (L) TSR25-75%_REF 1.66 RQP80-08%_LLN 0.75 VVU66-32%_Pre%REF 11 JOS57-81%_Post%REF 11 NYX29-14%_%Chng 0 PEF_POST 2.13 (L) PEF_PRE 2.33 (L) PEF_REF 5.04 PEF_LLN 3.49 PEF_Pre%REF 46 PEF_Post%REF 42 PEF_%Chng -9 DLCO_SB_PRE 8.56 (L) DLCOSingleBreath_REF 17.4 DLCOSingleBreath_LLN 13.0 DLCOSingleBreath_Pre%REF 49 VA_SB_PRE 3.06 (L) VASingleBreath_REF 4.12 VASingleBreath_LLN 3.28 VASingleBreath_Pre%REF 74 DL/VA_PRE 2.80 (L) DLCO/VA_REF 4.25 DLCO/VA_LLN 3.23 DLCO/VA_Pre%REF 66 IVC_SB_PRE 1.72 (L) Hb_PRE 15.40 IC_PRE 1.04 (L) IC_REF 1.63 IC_LLN 1.63 IC_Pre%REF 64 ERV_PRE 0.71 (H) ERV_REF 0.59 ERV_LLN 0.59 ERV_Pre%REF 122 RV_PRE 3.53 (H) RV_REF 1.96 RV_LLN 1.38 RV_Pre%REF 181 RV%TLC_PRE 66.77 (H) RV%TLC_REF 43 RV%TLC_LLN 34 RV%TLC_Pre%REF 154 FRCpl_PRE 4.25 (H) FRCpleth_REF 2.54 FRCpleth_LLN 1.72 FRCpleth_Pre%REF 167 TLC_PRE 5.29 TLC_REF 4.44 TLC_LLN 3.45 TLC_Pre%REF 119 Impression SEVERE OBSTRUCTIVE VENTILATORY DEFECT There is a significant response to bronchodilator in the FVC The elevated RV reflects AIR TRAPPING. MODERATE DECREASE IN DIFFUSING CAPACITY, corrected for hemoglobin. THIS PATTERN SUGGEST EMPHYSEMA, but may be seen in other disorders. ?Clinical correlation recommended MEDICAL THERAPY acetylcysteine 600 mg Oral BID apixaban 5 mg Oral BID dilTIAZem 180 mg Oral Daily docusate sodium 100 mg Oral BID losartan 100 mg Oral Daily And hydroCHLOROthiazide 25 mg Oral Daily LEVOthyroxine 50 mcg Oral DAILY EARLY AM mometasone-formoterol 2 Puff Inhalation RESP BID And tiotropium bromide 2 Puff Inhalation RESP Daily montelukast 10 mg Oral QPM nystatin 500,000 Units Oral QID pantoprazole (PROTONIX) 40 mg Intravenous Daily Or pantoprazole 40 mg Oral Daily predniSONE 40 mg Oral Daily WM Followed by [START ON 08/02/2022] predniSONE 30 mg Oral Daily WM Followed by [START ON 08/06/2022] predniSONE 20 mg Oral Daily WM Followed by [START ON 08/10/2022] predniSONE 10 mg Oral Daily WM REGULAR DIET IMAGING DATA No results found. SUPPLEMENTAL O2 & NIV (past 24h, last filed) O2 Device: Room Air ASSESSMENT Acute on Chronic Hypoxic and Hypercapneic Respiratory Failure Influenza A - on 07/24/22 COPD asthma overlap syndrome - in exacerbation (FEV1 0.7) Chronic diastolic heart failure GERD HTN Hypothyroidism PLAN On room air Bronchospastic - on prednisone taper Bronchodilators Ordered CT chest Pulmonary toilet, NAC Cardizem Apixaban Levothyroxine Code Status Full Code Thank you for the consult. We will continue to follow. Please call us withany questions. Bhanu Telles MD 07/29/2022 ECG AND WAVEFORMS - TELEMETRY Routine 07/28/2022 7:01 PM EST EK EKG 12 LEAD Routine 07/28/2022 10:29 AM EST ECG AND WAVEFORMS - TELEMETRY Routine 07/28/2022 7:01 AM EST ECG AND WAVEFORMS - TELEMETRY Routine 07/27/2022 7:25 PM EST ECG AND WAVEFORMS - TELEMETRY Routine 07/27/2022 7:25 PM EST ECG AND WAVEFORMS - TELEMETRY Routine 07/27/2022 12:24 PM EST EK EKG 12 LEAD Routine 07/27/2022 7:20 AM EST ECG AND WAVEFORMS - TELEMETRY Routine 07/27/2022 7:00 AM EST CBC WITH DIFF Early AM 07/27/2022 4:18 AM EST BASIC METABOLIC PANEL Early AM 07/27/2022 4:18 AM EST HEPARIN ANTI-XA, UNF Timed 07/27/2022 4:17 AM EST HEPARIN ANTI-XA, UNF Timed 07/26/2022 10:34 PM EST ECG AND WAVEFORMS - TELEMETRY Routine 07/26/2022 7:53 PM EST IP CONSULT TO CARDIOLOGY Routine 07/26/2022 2:57 PM EST Procedure Note - Anel Hung DO - 07/27/2022 7:13 AM ESTThis note is in progress. [facility] Inpatient Consult Note Admit Date: 07/24/2022 Provider: Thad Dye * Brand Strategy Manager: Carlos Alberto Crandall M.D. 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 O2 sat 80% at UrgentCare. +prod cough white mucous. Denies chest pain -fever uses O2 at 2liters prn. Started feeling sob on Friday, progressively worse since HPI Shreya Restrepo is a 72 y.o. female with a history of COPD, asthma,hypertension, obesity, HFpEF who presented with SOB and productive coughdue to aeCOPD from flu A. We are consulted for development of new a fibwith RVR. Patient seen at the bedside this AM. She states her breathing is a littlebit better this AM. Denies noticing any chest pain/pressure, palpitations,lightheadedness, syncope, orthopnea, PND, LE edema. Medications Current Facility-Administered Medications Medication Dose Route Frequency Provider Last Rate Last Admin acetylcysteine (NAC) capsule 600 mg 600 mg Oral BID Kadeem Vargas MD600 mg at 07/26/222053 mometasone-formoterol (DULERA HFA) 100-5 mcg/actuation inhaler 2 Puff 2Puff Inhalation RESP BID Thad Dye DO 2 Puff at109/26/211939 And tiotropium bromide (SPIRIVA RESPIMAT) inhalation mist 2 Puff 2 PuffInhalation RESP Daily Thad Dye DO And albuterol (PROVENTIL HFA;VENTOLIN HFA) inhaler 2 Puff 2 Puff InhalationPRN Thad Dye DO azithromycin (ZITHROMAX) tablet 500 mg 500 mg Oral Daily Kadeem Vargas MD 500 mg at 07/26/22 162 dilTIAZem (CARDIZEM) 1 mg/mL in sodium chloride 0.9 % 125 mL infusion 5mg/hr Intravenous Continuous Kadeem Vargas MD Stopped at 07/26/222044 docusate sodium (COLACE) capsule 100 mg 100 mg Oral BID Kadeem Vargas MD 100 mg at 07/26/222054 guaiFENesin (ROBITUSSIN) 100 mg/5 mL liquid 200 mg 200 mg Oral Q4H PRKadeem Yu MD heparin 25,000 units in 250 mL 0.45% NaCl 10 Units/kg/hr IntravenousContinuous Thad Dye DO 7.6 mL/hr at 07/27/22 0706 10Units/kg/hr at 07/27/22 0706 LEVOthyroxine (SYNTHROID) tablet 50 mcg 50 mcg Oral DAILY EARLY Kadeem Diana MD 50 mcg at 07/27/22 0525 methylPREDNISolone sodium succinate (Solu-MEDROL) injection 40 mg 40 mgIntravenous BID Kadeem Vargas MD 40 mg at 07/26/222054 montelukast (SINGULAIR) tablet 10 mg 10 mg Oral QPM Kadeem Vargas MD10 mg at 07/26/22 162 ondansetron (ZOFRAN) tablet 4 mg 4 mg Oral Q4H PRN Kadeem Vargas MD Or ondansetron (ZOFRAN) injection 4 mg 4 mg Intravenous Q4H PRN Kadeem Vargas MD oseltamivir (TAMIFLU) capsule 30 mg 30 mg Oral BID Kadeem Vargas MD30 mg at 07/26/222054 pantoprazole (PROTONIX) 40 mg in sodium chloride 0.9% 10 mL mg Intravenous Daily Kadeem Vargas MD Or pantoprazole (PROTONIX) tablet 40 mg 40 mg Oral Daily Kadeem Vargas MD40 mg at 07/26/22 0843 polyethylene glycol (GLYCOLAX, MIRALAX) packet 17 g 17 g Oral BID Kadeem An MD senna (SENOKOT) tablet 1-2 Tablet 1-2 Tablet Oral Daily PRN Kadeem Vargas MD sodium chloride 0.9% IV line flush 50 mL 50 mL Intravenous Christen Reyes MD sodium chloride 0.9% syringe 5 mL 5 mL Intravenous PRN Diego Benavides MD 5 mL at 07/26/222054 [facility] Past Medical History: Diagnosis Date Asthma COPD (chronic obstructive pulmonary disease) (HCC) COPD with acute exacerbation (HCC) 10/29/2020 Hypertension Thyroid disease Family History Problem Relation Age of Onset Sleep Apnea Other Social History Socioeconomic History Marital status: Spouse name: None Number of children: 4 Years of education: None Highest education level: None Tobacco Use Smoking status: Former Packs/day: 1.00 Years: 30.00 Pack years: 30.00 Types: Cigarettes Quit date: 05/18/2015 Years since quittin.1 Smokeless tobacco: Former Quit date: 11/02/2014 Tobacco comments: quit 6 years ago Substance and Sexual Activity Alcohol use: No Drug use: No Past Surgical History: Procedure Laterality Date DILATION AND CURETTAGE OF UTERUS ROS Constitutional - no fatigue, no weight gain, no weight loss Eyes - no vision changes ENT - no hearing changes Cardiovascular - no chest pain, + exertional dyspnea, no orthopnea, noPND, no palpitations Pulmonary - + wheezing Musculoskeletal - no cramps, no swelling GI - no hematochezia, no melena, no hematemesis - no hematuria Neuro - no syncope, no pre-syncope, no dizziness Psych - no depression, no anxiety Physical Exam Vitals: 07/27/22 0523 BP: 119/72 Pulse: 99 Resp: 18 Temp: 98.6 F (37 C) SpO2: 94% Body mass index is 30.54 kg/m . Constitutional - well appearing, no distress ENT - normal ears, normal nose, MMM Neck - no JVD, no masses Respiratory - wheezing throughout with diminished airflow Cardiovascular - RRR, no LE edema, 2+ radial pulses Gastrointestinal - NT/ND, BS+, no hepatojugular reflex Skin - no rash, no lesions Musculoskeletal - normal digits, normal station Psychiatric - alert and oriented, normal mood tele: a fib with HR 100's I/Os 24 HR Intake/Output Summary (Last 24 hours) at 07/27/2022 0713 Last data filed at 07/27/2022 0706 Gross per 24 hour Intake 1087.86 ml Output 100 ml Net 987.86 ml Labs and Imaging Clinical labs and imaging studies were independently reviewed and resultswere discussed with the patient. Lab Results Component Value Date WBC 19.1 (H) 07/27/2022 HGB 13.7 07/27/2022 HCT 42.3 07/27/2022 MCV 91.6 07/27/2022 PLT 413 (H) 07/27/2022 Lab Results Component Value Date CREATININE 0.89 07/27/2022 BUN 36 (H) 07/27/2022 NA 140 07/27/2022 K 4.4 07/27/2022 CL 104 07/27/2022 CO2 26 07/27/2022 GFRAFRAM 71 10/24/2020 GFRNONAFRAM 62 10/24/2020 Lab Results Component Value Date TSHREFLEX 3.560 04/25/2022 Lab Results Component Value Date TROPT <0.01 08/06/2015 Lab Results Component Value Date BNP 307 07/26/2022 Lab Results Component Value Date CHOLESTEROL 154 04/25/2022 Lab Results Component Value Date HDL 56 04/25/2022 Lab Results Component Value Date LDLCALC 82 04/25/2022 Lab Results Component Value Date TRIG 82 04/25/2022 The 10-year ASCVD risk score (Elvira ADKINS, et al., 2019) is: 16.1% Cardiac Testing: EKG - atrial fibrillation, low voltage TTE 07/26/2022 - * Left ventricular chamber dimension is normal. * Left ventricular function is normal with an estimated ejection fractionof 55-60%. * The left ventricular diastolic function is indeterminate. * Right ventricular systolic function is normal. * Estimated pulmonary artery systolic pressure is 28 mmHg. * There is mild aortic valve regurgitation. * The proximal ascending aorta is moderately dilated. Stress EHCO 2016: No ischemia CT Chest 05/2022 - Mild CAC Impression: Shreya Restrepo is a 72 y.o. female with a history of COPD, asthma,hypertension, obesity, HFpEF who presented with SOB and productive coughdue to aeCOPD from flu A. We are consulted for development of new a fibwith RVR. Recommendations: # CC SOB + productive cough due to Influenza A & aeCOPD # New onset atrial fibrillation with RVR likely due to above (CHADS-VAScof 4) # HFpEF # HTN # Dilated aorta and mild AI - Patient asymptomatic from a fib perspective, symptoms all due to flu Aand COPD it seems. - No HF complaints. Appears euvolemic. CXR without acute finding. [id number]. - No CP, trops negative, no concerns for ischemia. - HR low 100's. - No anemia, platelets elevated, renal function normal. No h/o concerningbleeding. - LVEF preserved. - Plan for rate control at this time given acute infection and aeCOPD. Canconsider TARIQ/DCCV once recovered. 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 - Can transition to Eliquis 5mg BID. - Transition from dilt gtt to PO diltiazem 180mg daily. Signed: Anel Hung, DO 07/27/22 7:13 AM EC ECHOCARDIOGRAM COMPLETE W DOPPLER AND COLOR FLOW MAPPING Routine 07/26/2022 1:48 PM EST EK EKG 12 LEAD Routine 07/26/2022 1:16 PM EST ECG AND WAVEFORMS - TELEMETRY Routine 07/26/2022 7:06 AM EST ECG AND WAVEFORMS - TELEMETRY Routine 07/26/2022 7:06 AM EST NT PROBNP Add-On 07/26/2022 6:02 AM EST CBC WITH DIFF Early AM 07/26/2022 6:02 AM EST BASIC METABOLIC PANEL Early AM 07/26/2022 6:02 AM EST ECG AND WAVEFORMS - TELEMETRY Routine 07/25/2022 7:35 PM EST SCANNED EKG 07/25/2022 8:29 AM EST IP CONSULT TO CASE MANAGEMENT Routine 07/25/2022 7:52 AM EST ECG AND WAVEFORMS - TELEMETRY Routine 07/25/2022 7:03 AM EST ECG AND WAVEFORMS - TELEMETRY Routine 07/25/2022 5:49 AM EST ECG AND WAVEFORMS - TELEMETRY Routine 07/25/2022 5:49 AM EST CBC WITH DIFF Early AM 07/25/2022 5:44 AM EST BASIC METABOLIC PANEL Early AM 07/25/2022 5:44 AM EST BLOOD CULTURE (NO STAIN) STAT 07/24/2022 1:49 PM EST TROPONIN-T HIGH SENSITIVITY 2HR Timed 07/24/2022 1:35 PM EST BLOOD CULTURE (NO STAIN) STAT 07/24/2022 1:35 PM EST ADMIT STAT 07/24/2022 12:57 PM EST XR CHEST AP PORTABLE LORETTA 07/24/2022 11:57 AM EST [id number] A/B Routine 07/24/2022 11:35 AM EST PROCALCITONIN STAT 07/24/2022 11:34 AM EST BLOOD GAS, VENOUS STAT 07/24/2022 11:34 AM EST NT PROBNP STAT 07/24/2022 11:34 AM EST LACTIC ACID STAT 07/24/2022 11:34 AM EST TROPONIN-T HIGH SENSITIVITY BASELINE W/ REFLEX STAT 07/24/2022 11:34 AM EST BASIC METABOLIC PANEL STAT 07/24/2022 11:34 AM EST CBC STAT 07/24/2022 11:34 AM EST EK EKG 12 LEAD STAT 07/24/2022 11:28 AM EST SALINE LOCK IV STAT 07/24/2022 11:[address] LUNG CANCER SCREENING LOW DOSE Routine 05/13/2022 8:23 AM EDT Personal history of nicotine dependence MM MAMMO DIGITAL MORE SCREEN BILAT Routine 04/25/2022 10:54 AM EDT Encounter for screening mammogram for malignant neoplasm of breast TSH REFLEX TO FT4 Callback 04/25/2022 10:25 AM EDT Hypothyroidism, unspecified type COMPREHENSIVE METABOLIC PANEL Callback 04/25/2022 10:25 AM EDT Hypothyroidism, unspecified type CBC Callback 04/25/2022 10:25 AM EDT Hypothyroidism, unspecified type LIPID SCREEN Callback 04/25/2022 10:25 AM EDT Hypothyroidism, unspecified type CPAP TITRATION Routine 05/17/2021 11:04 AM EDT Obstructive sleep apnea MM MAMMO DIGITAL MORE SCREEN BILAT Routine 05/01/2021 11:25 AM EDT Encounter for screening mammogram for malignant neoplasm of breast POLYSOMNOGRAPHY 4 OR MORE PARAMETERS Routine 04/06/2021 9:57 AM EDT Tiredness Snoring EC ECHOCARDIOGRAM COMPLETE W DOPPLER AND COLOR FLOW MAPPING Routine 02/21/2021 12:19 PM EDT Shortness of breath Decreased diffusion capacity of lung Cor pulmonale (HCC) CT CHEST WO CONTRAST Routine 01/19/2021 1:32 PM EDT Asthma-COPD overlap syndrome (HCC) COPD, group D, by GOLD 2017 classification (HCC) Decreased diffusion capacity of lung Cor pulmonale (HCC) PULMONARY FUNCTION TEST Routine 11/22/2020 12:51 PM EDT XR CHEST AP PORTABLE Routine 10/30/2020 8:20 AM EDT SCANNED EKG 10/27/2020 6:33 PM EDT TROPONIN-T HIGH SENSITIVITY 2HR Timed 10/24/2020 9:07 PM EDT EXTRA LIGHT BLUE STAT 10/24/2020 9:07 PM EDT ADMIT STAT 10/24/2020 8:45 PM EDT XR CHEST AP PORTABLE LORETTA 10/24/2020 7:20 PM EDT CORONAVIRUS 2019 POCT Routine 10/24/2020 7:17 PM EDT NT PROBNP Add-On 10/24/2020 6:42 PM EDT TROPONIN-T HIGH SENSITIVITY BASELINE W/ REFLEX STAT 10/24/2020 6:42 PM EDT BASIC METABOLIC PANEL STAT 10/24/2020 6:42 PM EDT CBC STAT 10/24/2020 6:42 PM EDT SALINE LOCK IV STAT 10/24/2020 6:36 PM EDT EK EKG 12 LEAD STAT 10/24/2020 6:35 PM EDT MM MAMMO DIGITAL SCREENING W CAD BILAT Routine 01/27/2019 3:14 PM EDT Encounter for screening mammogram for malignant neoplasm of breast MM MAMMO DIGITAL MORE DIAGN LEFT Routine 01/23/2018 12:56 PM EDT Breast density MM MAMMO DIGITAL SCREENING W CAD BILAT Routine 01/09/2018 11:26 AM EDT Encounter for screening mammogram for malignant neoplasm of breast SD US LOWER EXTREMITY ARTERIAL PHYSIOLOGICAL Routine 01/09/2018 10:59 AM EDT Peripheral vascular disease, unspecified XR CHEST PA AND LATERAL LORETTA 05/11/2017 1:24 PM EDT EK EKG 12 LEAD STAT 05/11/2017 12:16 PM EDT MM MAMMO DIGITAL SCREENING W CAD BILAT Routine 01/15/2017 9:50 AM EDT Encounter for screening mammogram for malignant neoplasm of breast DX BONE DENSITY AXIAL INCLUDING VERTEBRAL FRACTURE ASSESSMENT Routine 09/27/2016 10:49 AM EST Senile osteoporosis XR FOOT RIGHT AP LATERAL AND OBLIQUE LORETTA 03/23/2016 10:37 AM EDT MM MAMMO DIGITAL SCREENING W CAD BILAT Routine 01/17/2016 10:08 AM EDT Visit for screening mammogram SCANNED RADIOLOGY REPORT 12/25/2015 11:19 AM EDT EC ECHOCARDIOGRAM EXERCISE STRESS W DOPPLER AND COLOR FLOW MAPPING Routine 12/25/2015 10:49 AM EDT Moderate persistent asthma with acute exacerbation Abnormal ECG Essential hypertension Family history of early CAD ST STRESS TEST EXERCISE Routine 12/25/2015 10:40 AM EDT Moderate persistent asthma with acute exacerbation Abnormal ECG Essential hypertension Family history of early CAD POCT EKG Routine 11/24/2015 8:14 AM EDT Moderate persistent asthma with acute exacerbation SCANNED RHYTHM STRIPS 08/10/2015 2:45 PM EST SCANNED RHYTHM STRIPS 08/07/2015 2:37 AM EST TROPONIN-T Timed 08/06/2015 9:39 PM EST TROPONIN-T STAT 08/06/2015 6:20 PM EST XR CHEST PA AND LATERAL LORETTA 08/06/2015 4:14 PM EST DIFFERENTIAL STAT 08/06/2015 3:25 PM EST TROPONIN-T STAT 08/06/2015 3:25 PM EST CBC WITH DIFF STAT 08/06/2015 3:25 PM EST BASIC METABOLIC PANEL STAT 08/06/2015 3:25 PM EST EK EKG 12 LEAD STAT 08/06/2015 3:13 PM EST VA US LOWER EXTREMITY ARTERIAL PHYSIOLOGICAL Routine 11/29/2014 11:35 AM EDT Peripheral vascular disease, unspecified TROPONIN-T STAT 11/16/2014 4:30 PM EDT XR CHEST PA AND LATERAL STAT 11/16/2014 4:28 PM EDT DIFFERENTIAL STAT 11/16/2014 2:30 PM EDT TROPONIN-T STAT 11/16/2014 2:30 PM EDT NT PROBNP STAT 11/16/2014 2:30 PM EDT BASIC METABOLIC PANEL STAT 11/16/2014 2:30 PM EDT CBC WITH DIFF STAT 11/16/2014 2:30 PM EDT EK EKG 12 LEAD STAT 11/16/2014 2:12 PM EDT MM MOBILE MAMMO DIGITAL SCREEN W CAD MINDY Routine 01/15/2012 11:05 AM EDT Other screening mammogram DIAG CHEST PA & LAT Routine 10/04/2009 12:00 AM EST MRI ANGIO HEAD W/O CONTRAST Routine 12/22/2007 12:00 AM EDT MRI HEAD W/O CONTRAST Routine 12/21/2007 12:00 AM EDT MRI ANGIO NECK W/O CONTRAST Routine 12/21/2007 12:[address] HEAD W/O CONTRAST Routine 12/21/2007 12:00 AM EDT DIAG CHEST PA & LAT Routine 05/28/2007 12:00 AM EDT Results * MM MAMMO DIGITAL MORE SCREEN BILAT (06/27/2023 9:55 AM EST) Only the most recent of3 resultswithin the time period is included. Anatomical Region Laterality Modality Breast Bilateral Mammography 06/27/2023 11:3 9 AM EST Impressions 06/27/2023 11:39 AM EST Negative ([id number]) ~ RECOMMENDATION: Routine screening mammogram in 1 year. ~ DISCLAIMER * Any patient with a palpable abnormality, unexplained by breast imaging, should be managed on clinical basis by the attending physician. * Breast imaging has a false negative rate of 15%. * The patient was notified by mail of the results of this examination. *The patient's information was entered into a reminder system with a target due date for the next mammogram, in accordance with the [place] [employer] and the Society of Breast Imaging recommendations. Narrative 06/27/2023 11:39 AM EST Procedure:MM MAMMO DIGITAL MORE SCREEN BILAT ~ Reason for exam: screening, asymptomatic. Z12.31-Encounter for screening mammogram for malignant neoplasm of [id number]-CM ~ MM MAMMO DIGITAL MORE SCREEN BILAT Bilateral CC and MLO view(s) were taken. There are scattered fibroglandular densities. Prior study comparison: Compared with prior studies the most recent being 04/25/22, 05/01/21 No mammographic evidence of malignancy. ~ Procedure Note Maren Menendez MD - 06/27/2023 Procedure:MM MAMMO DIGITAL MORE SCREEN BILAT ~ Reason for exam: screening, asymptomatic. Z12.31-Encounter for screening mammogram for malignant neoplasm of [id number]-55-CM ~ MM MAMMO DIGITAL MORE SCREEN BILAT Bilateral CC and MLO view(s) were taken. There are scattered fibroglandular densities. Prior study comparison: Compared with prior studies the most recentbeing 04/25/22, 05/01/21 No mammographic evidence of malignancy. ~ IMPRESSION: Negative ([id number]-1) ~ RECOMMENDATION: Routine screening mammogram in 1 year. ~ DISCLAIMER * Any patient with a palpable abnormality, unexplained by breast imaging, should be managed on clinical basis by the attending physician. * Breast imaging has a false negative rate of 15%. * The patient was notified by mail of the results of this examination. *The patient's information was entered into a reminder system with atarget due date for the next mammogram, in accordance with the [place] [employer] and the Society of Breast Imaging recommendations. Leonides Foster MD IMG MAMMOGRAPHY ORDERABLES Final Result * CT CHEST ABDOMEN PELVIS W CONTRAST (03/08/2023 7:57 PM EDT) Anatomical Region Laterality Modality Abdomen, Chest, Pelvis Computed Tomography 03/08/2023 7:57 PM EDT Impressions 03/08/2023 8:24 PM EDT No acute findings within chest abdomen pelvis. COPD. Cholelithiasis. - Note: Radiology results need to be interpreted within a comprehensive clinical context. If you have questions about the radiology report, please contact the office of the ordering clinician. Narrative 03/08/2023 8:[address] CHEST, ABDOMEN, AND PELVIS WITH CONTRAST, 03/08/2023 7:57 PM CLINICAL HISTORY: -Right posterior, lower rib pain; right lateral abdominal tenderness and ecchymosis; right pelvic pain; fall -Trauma protocol. COMPARISON: None. PROCEDURE COMMENTS: Multidetector CT chest abdomen and pelvis with multiplanar reconstructions. Isovue 370 IV contrast given as recorded in EPIC. Dose 1 : CT DLP Total : 1464.24 mGycm DLP Spiral Max : 1108.92 mGycm Maximum CTDI Vol : 24.05 mGy FINDINGS: CT CHEST: Subtle deformities of the right seventh through ninth lateral ribs unchanged from previous exam compatible with old fractures. No definite acute rib fracture seen. Scoliosis and DJD of spine without acute spine fracture. No sternal fracture seen. Emphysema present. No acute infiltrates. No pneumothorax. No mediastinal mass or hematoma. Tortuous aorta. Coronary artery calcification: None. CT ABDOMEN AND PELVIS: Hepatic cysts. Multiple gallstones near the neck of the gallbladder. Small right renal cysts. Right adrenal, left adrenal, spleen, pancreas within normal limits. 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 However, no prior studies for comparison. No free air. No free fluid. Small bowel and appendix normal. Diverticular disease without diverticulitis. Compression deformity superior endplate of L4 is likely chronic. Procedure Note Ha Lizarraga MD - 03/08/2023 CT CHEST, ABDOMEN, AND PELVIS WITH CONTRAST, 03/08/2023 7:57 PM CLINICAL HISTORY: -Right posterior, lower rib pain; right lateralabdominal tenderness and ecchymosis; right pelvic pain; fall -Trauma protocol. COMPARISON: None. PROCEDURE COMMENTS: Multidetector CT chest abdomen and pelvis withmultiplanar reconstructions. Isovue 370 IV contrast given as recorded in EPIC. Dose 1 : CT DLP Total : 1464.24 mGycm DLP Spiral Max : 1108.92 mGycm Maximum CTDI Vol : 24.05 mGy FINDINGS: CT CHEST: Subtle deformities of the right seventh through ninth lateralribs unchanged from previous exam compatible with old fractures. No definiteacute rib fracture seen. Scoliosis and DJD of spine without acute spinefracture. No sternal fracture seen. Emphysema present. No acute infiltrates. Nopneumothorax. No mediastinal mass or hematoma. Tortuous aorta. Coronary artery calcification: None. CT ABDOMEN AND PELVIS: Hepatic cysts. Multiple gallstones near the neckof the gallbladder. Small right renal cysts. Right adrenal, left adrenal,spleen, pancreas within normal limits. Moderate to marked left UPJ obstructionwith cortical thinning, likely chronic. However, no prior studies forcomparison. No free air. No free fluid. Small bowel and appendix normal. Diverticular disease withoutdiverticulitis. Compression deformity superior endplate of L4 is likely chronic. IMPRESSION: No acute findings within chest abdomen pelvis. COPD. Cholelithiasis. - Note: Radiology results need to be interpreted within a comprehensiveclinical context. If you have questions about the radiology report, please contactthe office of the ordering clinician. us Kong White MD IMG CT ORDERABLES Final Res ult * CT CERVICAL SPINE WO CONTRAST (03/08/2023 7:52 PM EDT) Anatomical Region Laterality Modality C-spine Computed Tomogra phy 03/08/2023 7:52 PM EDT Impressions 03/08/2023 8:04 PM EDT No acute bony abnormality of the cervical spine. - Note: Radiology results need to be interpreted within a comprehensive clinical context. If you have questions about the radiology report, please contact the office of the ordering clinician. Narrative 03/08/2023 8:[address] CERVICAL SPINE WITHOUT CONTRAST, 03/08/2023 7:52 PM CLINICAL HISTORY: -Fall. COMPARISON: None. PROCEDURE COMMENTS: Multidetector CT of the cervical spine with multiplanar reformatting per protocol. Dose 1 : CT DLP Total : 2110.17 mGycm DLP Spiral Max : 804.64 mGycm Maximum CTDI Vol : 48.15 mGy FINDINGS: No acute fracture or traumatic malalignment. Prevertebral soft tissues unremarkable. Multilevel degenerative changes noted. Procedure Note Ha Lizarraga MD - 03/08/2023 CT CERVICAL SPINE WITHOUT CONTRAST, 03/08/2023 7:52 PM CLINICAL HISTORY: -Fall. COMPARISON: None. PROCEDURE COMMENTS: Multidetector CT of the cervical spine withmultiplanar reformatting per protocol. Dose 1 : CT DLP Total : 2110.17 mGycm DLP Spiral Max : 804.64 mGycm Maximum CTDI Vol : 48.15 mGy FINDINGS: No acute fracture or traumatic malalignment. Prevertebral soft tissues unremarkable. Multilevel degenerative changes noted. IMPRESSION: No acute bony abnormality of the cervical spine. - Note: Radiology results need to be interpreted within a comprehensiveclinical context. If you have questions about the radiology report, please contactthe office of the ordering clinician. us Kong White MD IMG CT ORDERABLES Final Res ult * CT HEAD WO CONTRAST (03/08/2023 7:49 PM EDT) Anatomical Region Laterality Modality Head Computed Tomogra phy 03/08/2023 7:49 PM EDT Impressions 03/08/2023 8:01 PM EDT No acute intracranial abnormality. - Note: Radiology results need to be interpreted within a comprehensive clinical context. If you have questions about the radiology report, please contact the office of the ordering clinician. Narrative 03/08/2023 8:[address] HEAD WO CONTRAST 03/08/2023 7:49 PM CLINICAL HISTORY: -Fall; head injury; anticoagulated. COMPARISON: None. PROCEDURE COMMENTS: Routine noncontrast head CT with multiplanar reconstructions. Dose 1 : CT DLP Total : 2110.17 mGycm DLP Spiral Max : 804.64 mGycm Maximum CTDI Vol : 48.15 mGy FINDINGS: No evidence of acute stroke, mass, or hemorrhage. No fracture or extra-axial collection. Age-related changes noted, including atrophy and findings compatible with chronic small vessel disease. Included portions of the paranasal sinuses, mastoids, and orbits unremarkable. Procedure Note Ha Lizarraga MD - 03/08/2023 CT HEAD WO CONTRAST 03/08/2023 7:49 PM CLINICAL HISTORY: -Fall; head injury; anticoagulated. COMPARISON: None. PROCEDURE COMMENTS: Routine noncontrast head CT with multiplanar reconstructions. Dose 1 : CT DLP Total : 2110.17 mGycm DLP Spiral Max : 804.64 mGycm Maximum CTDI Vol : 48.15 mGy FINDINGS: No evidence of acute stroke, mass, or hemorrhage. No fracture orextra-axial collection. Age-related changes noted, including atrophy and findingscompatible with chronic small vessel disease. Included portions of the paranasal sinuses, mastoids, and orbitsunremarkable. IMPRESSION: No acute intracranial abnormality. - Note: Radiology results need to be interpreted within a comprehensiveclinical context. If you have questions about the radiology report, please contactthe office of the ordering clinician. Kong White MD IMG CT ORDERABLES Final Res ult * (ABNORMAL) CBC (03/08/2023 6:52 PM EDT) Only the most recent of4 resultswithin the time period is included. WBC 12.9(H) 3.7 - 10.3 x10(3)/mcL 03/08/2023 6:58 PM EDT [facility] RBC 5.04 3.90 - 5.20 x10(6)/mcL 03/08/2023 6:58 PM EDT [facility] Hgb 15.1 11.2 - 15.7 g/dL 03/08/2023 6:58 PM EDT [facility] Hct 46.3(H) 34.0 - 45.0 % 03/08/2023 6:58 PM EDT [facility] MCV 91.9 80.0 - 100.0 fL 03/08/2023 6:58 PM EDT [facility] MCH 30.0 26.0 - 34.0 pg 03/08/2023 6:58 PM EDT [facility] MCHC 32.6 30.7 - 35.5 g/dL 03/08/2023 6:58 PM EDT [facility] RDW 14.5 <=14.9 % 03/08/2023 6:58 PM EDT [facility] Platelet 296 155 - 369 x10(3)/mcL 03/08/2023 6:58 PM EDT [facility] MPV 10.6 8.8 - 12.5 fL 03/08/2023 6:58 PM EDT [facility] Blood VENOUS BLOOD / Unknown Venipuncture / Unknown 03/08/2023 6:52 PM EDT 03/08/2023 6:55 PM EDT us Kong White MD HEMATOLOGY ORDERABLES Final Result Performing Organization Address City/State/[facility] Co de Phone Number [facility] [address] [place] [address] * BASIC METABOLIC PANEL (03/08/2023 6:52 PM EDT) Only the most recent of8 resultswithin the time period is included. Sodium 140 136 - 145 mmol/L 03/08/2023 7:15 PM EDT [facility] Potassium 3.9 3.5 - 5.0 mmol/L 03/08/2023 7:15 PM EDT [facility] Chloride 103 98 - 107 mmol/L 03/08/2023 7:15 PM EDT [facility] Total CO2 26 22 - 29 mmol/L 03/08/2023 7:15 PM EDT [facility] Anion Gap 11 7 - 16 mmol/L 03/08/2023 7:15 PM EDT [facility] Calcium 9.5 8.8 - 10.4 mg/dL 03/08/2023 7:15 PM EDT [facility] Glucose Lvl 97 82 - 100 mg/dL 03/08/2023 7:15 PM EDT [facility] BUN 22 8 - 23 mg/dL 03/08/2023 7:15 PM EDT [facility] Creatinine 0.91 0.51 - 1.30 mg/dL 03/08/2023 7:15 PM EDT [facility] eGFR (CKD-EPIcr 2020) 65 >=60 mL/min/1.7 3 m2 03/08/2023 7:15 PM EDT [facility] Comment:Estimated GFR was ca lculated using the CKD-EPIcr (2020) equation refit without race. The equation is recommended by the [employer] - [place] [employer] Task Force. Blood VENOUS BLOOD / Unknown Venipuncture / Unknown 03/08/2023 6:52 PM EDT 03/08/2023 6:55 PM EDT us Kong White MD CHEMISTRY ORDERABLES Final Result [facility] [address] [place] [address] * CT EJ LUNG NODULE FOLLOW UP (10/30/2022 8:18 AM EDT) Anatomical Region Laterality Modality Chest Computed Tomogra phy 10/30/2022 8:18 AM EDT Impressions 10/30/2022 4:15 PM EDT Interval resolution of the pulmonary nodule seen on the prior study July 29, 2022, compatible with resolved infectious/inflammatory process. No new pulmonary nodule identified. Moderate emphysema. RECOMMENDATION (EZEKIELNER 2017): Resolved nodules. Return to annual low dose lung cancer screening schedule. A summary letter communicating these results will be mailed to the patient's address of record. - Note: Radiology results need to be interpreted within a comprehensive clinical context. If you have questions about the radiology report, please contact the office of the ordering clinician. Narrative 10/30/2022 4:15 PM EDT LOW DOSE LUNG CT NODULE FOLLOW-UP (NAVIGATOR), 10/30/2022 8:18 AM CLINICAL HISTORY: Follow up lung nodule. R91.1-Solitary pulmonary [id number]-CM. COMPARISON: July 29, 2022. May 13, 2022. PROCEDURE COMMENTS: Noncontrast, low-dose, multidetector CT chest per department protocol. Dose 1 : CT DLP Total : 65.51 mGycm DLP Spiral Max : 62.57 mGycm Maximum CTDI Vol : 2.1 mGy FINDINGS: Previously identified subpleural right middle lobe pulmonary nodule and bibasilar lower lobe nodular opacities have completely resolved, confirming infectious/inflammatory process. No new or enlarging pulmonary nodule identified. Few calcified pulmonary nodules related to remote granulomatous disease bilaterally. Moderate emphysema. No consolidative disease, pleural effusion, or pneumothorax. The central tracheobronchial tree is patent without endobronchial lesion. Small amount secretions are noted along the right lateral wall of the proximal trachea. Additional significant findings include: Remainder of the chest is grossly stable compared to the prior examination. No significant new finding. Coronary artery calcification: Mild. Procedure Note Felix Varela MD - 10/30/[address] NODULE FOLLOW-UP (NAVIGATOR), 10/30/2022 8:18 AM CLINICAL HISTORY: Follow up lung nodule. R91.1-Solitary pulmonary [id number]-CM. COMPARISON: July 29, 2022. May 13, 2022. PROCEDURE COMMENTS: Noncontrast, low-dose, multidetector CT chest perdepartment protocol. Dose 1 : CT DLP Total : 65.51 mGycm DLP Spiral Max : 62.57 mGycm Maximum CTDI Vol : 2.1 mGy FINDINGS: Previously identified subpleural right middle lobe pulmonarynodule and bibasilar lower lobe nodular opacities have completely resolved,confirming infectious/inflammatory process. No new or enlarging pulmonary nodule identified. Few calcified pulmonary nodules related to remotegranulomatous disease bilaterally. Moderate emphysema. No consolidative disease,pleural effusion, or pneumothorax. The central tracheobronchial tree is patentwithout endobronchial lesion. Small amount secretions are noted along the rightlateral wall of the proximal trachea. Additional significant findings include: Remainder of the chest isgrossly stable compared to the prior examination. No significant new finding. Coronary artery calcification: Mild. IMPRESSION: Interval resolution of the pulmonary nodule seen on the prior study July 29, 2022, compatible with resolved infectious/inflammatoryprocess. No new pulmonary nodule identified. Moderate emphysema. RECOMMENDATION (FLEISCHNER 2017): Resolved nodules. Return to annual lowdose lung cancer screening schedule. A summary letter communicating these results will be mailed to thepatient's address of record. - Note: Radiology results need to be interpreted within a comprehensiveclinical context. If you have questions about the radiology report, please contactthe office of the ordering clinician. us Mason Garcia MD IMG CT ORDERABLES Final Result * ECG AND WAVEFORMS - TELEMETRY (07/31/2022 7:00 AM EST) Only the most recent of18 resultswithin the time period is included. ECG INTERPRET NSR with PVCs [facility] 07/31/2022 7:00 AM EST Narrative [facility] - 07/31/2022 11:37 AM EST AC/HICUITY/ROUTINE PA 0.13 QRS 0.11 QT 0.39 See Clinical Report link for waveform capture us Unknown Provider POINT OF CARE CARDIOLOGY Final Result Performing Organization Address City/State/[facility] Co de Phone Number [facility] [address] [place] [address] * CT CHEST HIGH RESOLUTION WO CONTRAST (07/29/2022 8:36 PM EST) Anatomical Region Laterality Modality Chest Computed Tomogra phy 07/29/2022 8:36 PM EST Impressions 07/29/2022 9:07 PM EST 1. Multifocal branching nodular opacities in the lung bases, likely infectious/inflammatory. New 4 mm subpleural nodule in the right middle lobe and patchy linear opacities in the medial right upper lobe are also likely infectious/inflammatory given their interval appearance. A follow-up exam in 3 to 6 months could assess for resolution. 2. No evidence for significant pulmonary fibrosis. - Note: Radiology results need to be interpreted within a comprehensive clinical context. If you have questions about the radiology report, please contact the office of the ordering clinician. Narrative 07/29/2022 9:[address] CHEST HIGH-RESOLUTION WITHOUT CONTRAST, 07/29/2022 8:36 PM CLINICAL HISTORY: Shortness of breath. COMPARISON: CT chest 05/13/2022. PROCEDURE COMMENTS: High-resolution CT chest per protocol. Multiplanar reconstructions. Dose 1 : CT DLP Total : 513.24 mGycm DLP Spiral Max : 416.26 mGycm Maximum CTDI Vol : 11.13 mGy FINDINGS: There are new multifocal branching nodular opacities in the lung bases. There is also a new 4 mm subpleural nodule in the right middle lobe and new patchy and linear opacities in the medial right upper lobe. Moderate to severe background emphysema is redemonstrated. There is no evidence for widespread pulmonary fibrosis. No honeycombing or significant air trapping. No pleural effusion. Mild coronary artery calcifications. Small hiatal hernia. Incompletely assessed but presumed hepatic cysts. Chronic atrophy of the left kidney with a presumed large anterior exophytic cyst. Markedly tortuous thoracic aorta. No acute osseous abnormality. Severe S-shaped scoliosis of the thoracic spine with exaggeration of normal kyphosis. Procedure Note Nolan Calhoun MD - 07/29/2022 CT CHEST HIGH-RESOLUTION WITHOUT CONTRAST, 07/29/2022 8:36 PM CLINICAL HISTORY: Shortness of breath. COMPARISON: CT chest 05/13/2022. PROCEDURE COMMENTS: High-resolution CT chest per protocol. Multiplanar reconstructions. Dose 1 : CT DLP Total : 513.24 mGycm DLP Spiral Max : 416.26 mGycm Maximum CTDI Vol : 11.13 mGy FINDINGS: There are new multifocal branching nodular opacities in the lung bases.There is also a new 4 mm subpleural nodule in the right middle lobe and new patchyand linear opacities in the medial right upper lobe. Moderate to severebackground emphysema is redemonstrated. There is no evidence for widespreadpulmonary fibrosis. No honeycombing or significant air trapping. No pleuraleffusion. Mild coronary artery calcifications. Small hiatal hernia. Incompletelyassessed but presumed hepatic cysts. Chronic atrophy of the left kidney with apresumed large anterior exophytic cyst. Markedly tortuous thoracic aorta. No acute osseous abnormality. Severe S-shaped scoliosis of the thoracicspine with exaggeration of normal kyphosis. IMPRESSION: 1. Multifocal branching nodular opacities in the lung bases, likely infectious/inflammatory. New 4 mm subpleural nodule in the right middlelobe and patchy linear opacities in the medial right upper lobe are also likely infectious/inflammatory given their interval appearance. A follow-up examin 3 to 6 months could assess for resolution. 2. No evidence for significant pulmonary fibrosis. - Note: Radiology results need to be interpreted within a comprehensiveclinical context. If you have questions about the radiology report, please contactthe office of the ordering clinician. us Bhanu Telles MD IMG CT ORDERABLES Final Result * EK EKG 12 LEAD (07/28/2022 10:29 AM EST) Only the most recent of8 resultswithin the time period is included. Anatomical Region Laterality Modality Electrocardiogra phy 07/28/2022 10:4 9 AM EST Impressions 07/28/2022 4:35 PM EST [facility]: [facility]22-[facility]-28 Pat Name: SHREYA ROACHWER Department: DEPID Room: E31 Gender: Female Mobile Home Set Up Person: Ganga : 1950 Requested By: ANEL Jama Order Number: [id number] Reading MD: Anel Hung DO Measurements Intervals [place] Rate: 92 P: 65 PA: 130 QRS: -17 QRSD: 94 T: 31 QT: 339 QTc: 421 Interpretive Statements SINUS RHYTHM Electronically Signed On 07-28-2022 16:35:46 EST by Anel Hung DO Narrative Procedure Note Anel Hung DO - 07/28/2022 IMPRESSION [facility]: 2022-07-28 Pat Name: [facility] Department: DEPID Room: E3611 Gender: Female Mobile Home Set Up Person: Ganga : 1950 Requested By: ANEL Jama Order Number: [id number] Reading MD: Anel Hung DO Measurements Intervals [place] Rate: 92 P: 65 PA: 130 QRS: -17 QRSD: 94 T: 31 QT: 339 QTc: 421 Interpretive Statements SINUS RHYTHM Electronically Signed On 07-28-2022 16:35:46 EST by Anel Hung DO us Anel Hung DO IMG ECG ORDERABLES Final Resul t * (ABNORMAL) CBC WITH DIFF (07/27/2022 4:18 AM EST) Only the most recent of5 resultswithin the time period is included. WBC 19.1(H) 3.7 - 10.3 x10(3)/mcL 07/27/2022 4:34 AM EST [facility] RBC 4.62 3.90 - 5.20 x10(6)/mcL 07/27/2022 4:34 AM EST [facility] Hgb 13.7 11.2 - 15.7 g/dL 07/27/2022 4:34 AM EST [facility] Hct 42.3 34.0 - 45.0 % 07/27/2022 4:34 AM EST [facility] MCV 91.6 80.0 - 100.0 fL 07/27/2022 4:34 AM EST [facility] MCH 29.7 26.0 - 34.0 pg 07/27/2022 4:34 AM EST [facility] MCHC 32.4 30.7 - 35.5 g/dL 07/27/2022 4:34 AM EST [facility] RDW 14.4 <=14.9 % 07/27/2022 4:34 AM EST [facility] Platelet 413(H) 155 - 369 x10(3)/mcL 07/27/2022 4:34 AM EST [facility] MPV 9.6 8.8 - 12.5 fL 07/27/2022 4:34 AM EST [facility] Neut Percent 85.0 % 07/27/2022 4:34 AM [facility] Comment:Neutrophils equals s egs plus bands Imm Gran% 4.0 % 07/27/2022 4:34 AM EST [facility] Comment:Automated count of m etamyelocytes, myelocytes and promyelocytes. Lymph Percent 6.5 % 07/27/2022 4:34 AM EST [facility] Pike Percent 4.1 % 07/27/2022 4:34 AM EST [facility] Eos Percent 0.1 % 07/27/2022 4:34 AM EST [facility] Baso Percent 0.3 % 07/27/2022 4:34 AM EST [facility] Neut # 16.2(H) 1.6 - 6.1 x10(3)/[facility] 07/27/2022 4:34 AM EST [facility] Comment:Neutrophils equals s egs plus bands IMMGRAN# 0.8(H) 0.0 - 0.1 x10(3)/mcL 07/27/2022 4:34 AM EST [facility] Comment:Automated count of m etamyelocytes, myelocytes and promyelocytes. An absolute IG <0.1 is reported as 0.0. Lymph # 1.2 1.2 - 3.9 x10(3)/[facility] 07/27/2022 4:34 AM EST [facility] Pike # 0.8 0.3 - 0.9 x10(3)/[facility] 07/27/2022 4:34 AM EST [facility] Eos# 0.0 0.0 - 0.5 x10(3)/[facility] 07/27/2022 4:34 AM EST [facility] Baso # 0.1 0.0 - 0.1 x10(3)/[facility] 07/27/2022 4:34 AM EST [facility] Blood VENOUS BLOOD / Unknown Venipuncture / Unknown 07/27/2022 4:18 AM EST 07/27/2022 4:29 AM EST us Kadeem Vargas MD HEMATOLOGY ORDERABLES Final Resu lt [facility] [address] [place] [address] * HEPARIN ANTI-XA, UNF (07/27/2022 4:17 AM EST) Only the most recent of2 resultswithin the time period is included. Heparin Level UNF 0.61 0.30 - 0.70 IU/mL 07/27/2022 4:44 AM EST [facility] Comment:The therapeutic rang e for heparinized patients monitored by the Heparin Lvl UF is 0.30-0.70 IU/mL. Blood VENOUS BLOOD / Unknown Venipuncture / Unknown 07/27/2022 4:17 AM EST 07/27/2022 4:29 AM EST Lealisa Dye HEMATOLOGY ORDERABLE S Final Result [facility] [address] [place] [address] * EC ECHOCARDIOGRAM COMPLETE W DOPPLER AND COLOR FLOW MAPPING (07/26/2022 1:48 PM EST) Only the most recent of2 resultswithin the time period is included. LV DIASTOLIC PLAX 4.54 cm PYRAMIS Ejection Fraction 55-60% PYRAMIS MITRAL REGURGITATION trace PYRAMIS AORTIC STENOSIS no PYRAMIS Anatomical Region Laterality Modality Electrocardiogra phy 07/26/2022 1:11 PM EST Impressions 07/26/2022 4:09 PM EST Conclusions * Left ventricular chamber dimension is normal. * Left ventricular function is normal with an estimated ejection fraction of 55-60%. * The left ventricular diastolic function is indeterminate. * Right ventricular systolic function is normal. * Estimated pulmonary artery systolic pressure is 28 mmHg. * There is mild aortic valve regurgitation. * The proximal ascending aorta is moderately dilated. Narrative Procedure Note Anel Hung R, DO - 07/26/2022 IMPRESSION Conclusions * Left ventricular chamber dimension is normal. * Left ventricular function is normal with an estimated ejectionfraction of 55-60%. * The left ventricular diastolic function is indeterminate. * Right ventricular systolic function is normal. * Estimated pulmonary artery systolic pressure is 28 mmHg. * There is mild aortic valve regurgitation. * The proximal ascending aorta is moderately dilated. Kadeem Vargas MD IMG ECHO ORDERABLES Final Result * NT PROBNP (07/26/2022 6:02 AM EST) Only the most recent of4 resultswithin the time period is included. NT Pro-BNP 307 <=353 pg/mL 07/26/2022 3:28 PM EST [facility] Blood VENOUS BLOOD / Unknown Venipuncture / Unknown 07/26/2022 6:02 AM EST 07/26/2022 6:37 AM EST Narrative [facility] - 07/26/2022 3:28 PM EST An NT pro-BNP level less than 300 pg/mL in any patient, regardless of age, effectively rules out acute CHF with a 99% negative predictive value. Ingestion of porfirio doses of biotin (>5 mg/day) taken within 8 hours of drawing blood sample can interfere with this immunoassay test. us Kadeem Vargas MD CHEMISTRY ORDERABLES Final Resul t Performing Organization Address City/[facility]/ZIP Co de Phone Number [facility] [address] [place] [id number] * SCANNED EKG (07/25/2022 8:29 AM EST) Only the most recent of2 resultswithin the time period is included. Anatomical Region Laterality Modality Other 07/25/2022 8:29 AM EST us Unknown Provider IMG ECG ORDERABLES Final Result * BLOOD CULTURE (NO STAIN) (07/24/2022 1:49 PM EST) Only the most recent of2 resultswithin the time period is included. Culture Result No Growth at 120 hours. BLOOD CULTURE (NO STAIN) 07/29/2022 5:00 PM EST [facility] [employer] Blood VENOUS BLOOD / Unknown Venipuncture / Unknown 07/24/2022 1:49 PM EST 07/24/2022 2:02 PM EST us Christen Benavides MD MICROBIOLOGY - GENERAL SHANA JEWELL Final Result [facility] [address] [facility] , [place] [address] * TROPONIN-T HIGH SENSITIVITY 2HR (07/24/2022 1:35 PM EST) Only the most recent of2 resultswithin the time period is included. xb-bMgbtqcis-H 2HR 11 <14 ng/L 07/24/2022 1:58 PM EST [facility] Comment:See the website smith curtis for rule out [place] care pathway, conditions other than AMI that can cause elevated hs cTnT, and comparison of values from the 4th and 5th generation Negin tests. https://askmayoexpert.[email or web address]/topic/clinical-answers/[email or web address]/cpm-[email or web address] 85382 hs-cTnT 2Hr Delta from Baseline 1 <4 ng/L 07/24/2022 1:58 PM EST [facility] Blood VENOUS BLOOD / Unknown Venipuncture / Unknown 07/24/2022 1:35 PM EST 07/24/2022 1:38 PM EST Narrative [facility] - 07/24/2022 1:58 PM EST Ingestion of porfirio doses of biotin (>5 mg/day) taken within 8 hours of drawing blood sample can interfere with this immunoassay test. us Christen Benavides MD CHEMISTRY ORDERABLES Final Result [facility] [address] [place] [address] * XR CHEST AP PORTABLE (07/24/2022 11:57 AM EST) Only the most recent of3 resultswithin the time period is included. Anatomical Region Laterality Modality Chest Radiographic Heather ging 07/24/2022 11:5 7 AM EST Impressions 07/24/2022 12:00 PM EST No acute finding. - Note: Radiology results need to be interpreted within a comprehensive clinical context. If you have questions about the radiology report, please contact the office of the ordering clinician. Narrative 07/24/2022 12:00 PM EST XR CHEST AP PORTABLE, 07/24/2022 11:57 AM CLINICAL HISTORY: -SHORTNESS OF BREATH COMPARISON: 10/30/2020 PROCEDURE COMMENTS: AP portable technique. FINDINGS: Support devices: No visible support devices. Heart and mediastinal contours within normal limits for technique. No active failure, pneumonia, or visible effusion. No visible pneumothorax. Coarse interstitial markings stable. Scoliosis and tortuosity of the aorta stable. Procedure Note Maren Menendez MD - 07/24/2022 XR CHEST AP PORTABLE, 07/24/2022 11:57 AM CLINICAL HISTORY: -SHORTNESS OF BREATH COMPARISON: 10/30/2020 PROCEDURE COMMENTS: AP portable technique. FINDINGS: Support devices: No visible support devices. Heart and mediastinal contours within normal limits for technique. Noactive failure, pneumonia, or visible effusion. No visible pneumothorax. Coarse interstitial markings stable. Scoliosis and tortuosity of theaorta stable. IMPRESSION: No acute finding. - Note: Radiology results need to be interpreted within a comprehensiveclinical context. If you have questions about the radiology report, please contactthe office of the ordering clinician. Christen Benavides MD [facility] Final Result * (ABNORMAL) [id number] A/B (07/24/2022 11:35 AM EST) Pathologist [facility] CORONAVIRUS [id number] Not Detected Not Detected 07/24/2022 12:13 PM EST [facility] Influenza A DNA Detected(A) Not Detected 07/24/2022 12:13 PM EST [facility] Influenza B DNA Not Detected Not Detected 07/24/2022 12:13 PM EST [facility] Swab BOTH ANTERIOR NARES / Unknown 07/24/2022 11:35 AM EST 07/24/2022 11:46 AM EST [facility] - 07/24/2022 12:13 PM EST This test is a real-time RT-PCR test that simultaneously detects and differentiates nucleic acids from SARS-CoV-2, influenza A and influenza B in individuals suspected of a respiratory viral infection. Not Detected results do not preclude COVID-19 or influenza virus infection or other respiratory viruses and should not be used as the sole basis for treatment or other patient management decisions. Test is performed on the [employer] FANI platform under the FDA's Emergency Use Authorization (EUA). FANI Fact Sheet for Providers and Patients: FANI Fact Sheet for Providers: https://www.fda.gov/media/778308/download FANI Fact Sheet for Patients: https://www.fda.gov/media/902191/download us Christen Benavides MD MICROBIOLOGY - GENERAL ORDMark JEWELL Final Result Performing Organization Address City/[facility]/ZIP Co de Phone Number [facility] [address] [facility] [place] [address] * TROPONIN-T HIGH SENSITIVITY BASELINE W/ REFLEX (07/24/2022 11:34 AM EST) Only the most recent of2 resultswithin the time period is included. Pathologist [facility] [id number]-[id number]-E 10 <14 ng/L 07/24/2022 12:16 PM EST [facility] Comment:See the website [facility] Interlude for rule out [place] care pathway, conditions other than AMI that can cause elevated hs cTnT, and comparison of values from the 4th and 5th generation Negin tests. https://askmayoexpert.[facility].org/topic/clinical-answers/gnt-[email or web address]/cpm-[email or web address] 19827 Blood VENOUS BLOOD / Unknown Venipuncture / Unknown 07/24/2022 11:34 AM EST 07/24/2022 11:46 AM EST Narrative [facility] - 07/24/2022 12:16 PM EST Ingestion of porfirio doses of biotin (>5 mg/day) taken within 8 hours of drawing blood sample can interfere with this immunoassay test. us Christen Benavides MD CHEMISTRY ORDERABLES Final Result Performing Organization Address City/[facility]/ZIP Co de Phone Number [facility] [address] [facility] [place] [address] * (ABNORMAL) BLOOD GAS, VENOUS (07/24/2022 11:34 AM EST) pH Venous 7.38 7.32 - 7.42 pH 07/24/2022 11:49 AM EST [facility] pCO2 Venous 49 41 - 51 mmHg 07/24/2022 11:49 AM EST [facility] pO2 Venous 34 25 - 40 mmHg 07/24/2022 11:49 AM EST [facility] Comment:Interpret with cauti on. Not recommended to evaluate patient's oxygenation status. Base Excess Gage 3.2 mmol/L 11:49 AM EST [facility] Hco3 Venous 29.3(H) 24.0 - 28.0 mmol/L 07/24/2022 11:49 AM EST [facility] CO2 Total Gage 27 25 - 29 mmol/L 07/24/2022 11:49 AM EST [facility] O2 Sat. Venous 63.8 40.0 - 70.0 % 07/24/2022 11:49 AM EST [facility] Blood VENOUS BLOOD / Unknown Venipuncture / Unknown 07/24/2022 11:34 AM EST 07/24/2022 11:46 AM EST Christen Benavides MD CHEMISTRY ORDERABLES Final Result [facility] [address] [place] [address] * PROCALCITONIN (07/24/2022 11:34 AM EST) Procalcitonin 0.10 <=0.49 ng/mL 07/24/2022 12:21 PM EST [facility] Blood VENOUS BLOOD / Unknown Venipuncture / Unknown 07/24/2022 11:34 AM EST 07/24/2022 11:46 AM EST Narrative [facility] - 07/24/2022 12:21 PM EST Procalcitonin <0.50 ng/mL: Procalcitonin levels below 0.50 ng/mL on the first day of ICU admission represent a low risk for progression to severe sepsis and/or septic shock Procalcitonin >=0.50 ng/mL and <=2.00 ng/mL: If the procalcitonin measurement is performed shortly after the systemic infection process has started (usually less than 6 hours), this value may still be low. As various non-infectious conditions are known to induce procalcitonin as well, procalcitonin levels between 0.50 ng/mL and 2.00 ng/mL should be reviewed carefully to take into account the specific clinical background and condition(s) of the patient. Procalcitonin >2.00 ng/mL: Procalcitonin levels above 2.00 ng/mL on the first day of ICU admission represent a high risk for progression to severe sepsis and/or septic shock. Christen Benavides MD CHEMISTRY ORDERABLES Final Result Performing Organization Address [facility] Co de Phone Number [facility] [address] [place] [address] * LACTIC ACID (07/24/2022 11:34 AM EST) Lactic Acid 1.3 0.5 - 1.9 mmol/L 07/24/2022 12:04 PM EST [facility] Blood VENOUS BLOOD / Unknown Venipuncture / Unknown 07/24/2022 11:34 AM EST 07/24/2022 11:46 AM EST Christen Benavides MD CHEMISTRY ORDERABLES Final Result Performing Organization Address [facility] de Phone Number [facility] [address] [place] [address] * CT LUNG CANCER SCREENING LOW DOSE (05/13/2022 8:23 AM EDT) Anatomical Region Laterality Modality Lung Computed Tomogra phy 05/13/2022 8:23 AM EDT Impressions 05/13/2022 8:46 AM EDT Unremarkable low-dose screening chest CT. RECOMMENDATION: Low Dose CT - 1 Yr A summary letter communicating these results will be mailed to the patient's address of record. - Note: Radiology results need to be interpreted within a comprehensive clinical context. If you have questions about the radiology report, please contact the office of the ordering clinician. [email or web address] Narrative 05/13/2022 8:[address] LUNG CANCER SCREENING LOW DOSE 05/13/2022 8:23 AM CLINICAL HISTORY: Asymptomatic patient meeting NCCN high risk criteria for lung screening. Z87.891-Personal history of nicotine [id number]-CM. COMPARISON: 01/19/2021 PROCEDURE COMMENTS: Noncontrast, low-dose, multidetector CT chest per department protocol. Interactive 3-D postprocessing done by the reviewing physician on a SYNGO workstation, using Maximum intensity projections (MIPS) and SYNGO LUNG CAD for improved lesion detection. Clarke images archived to PACS. Dose 1 : CT DLP Total : 67.95 mGycm DLP Spiral Max : 64.18 mGycm Maximum CTDI Vol : 2.06 mGy FINDINGS: No suspicious pulmonary nodule. Evidence of old healed granulomatous disease. No acute inflammatory process. Heart and mediastinum unremarkable. 5 cm upper pole left renal cyst. Simple cyst posterior segment right hepatic lobe. Coronary artery calcification: Mild. FOLLOW-UP CODE: Lung-RADS Category 1: Negative: No nodule or definitely benign nodule(s). Continued ANNUAL LOW-DOSE SCREENING CT SCAN (IMG [id number]) suggested if age <78. Lung-RADS Modifier N/A: No Modifier Needed Procedure Note Gaurav Jennings MD - 05/13/2022 CT LUNG CANCER SCREENING LOW DOSE 05/13/2022 8:23 AM CLINICAL HISTORY: Asymptomatic patient meeting NCCN high risk criteria forlung screening. Z87.891-Personal history of nicotine [id number]-CM. COMPARISON: 01/19/2021 PROCEDURE COMMENTS: Noncontrast, low-dose, multidetector CT chest perdepartment protocol. Interactive 3-D postprocessing done by the reviewing physicianon a SYNGO workstation, using Maximum intensity projections (MIPS) and SYNGOLUNG CAD for improved lesion detection. Clarke images archived to PACS. Dose 1 : CT DLP Total : 67.95 mGycm DLP Spiral Max : 64.18 mGycm Maximum CTDI Vol : 2.06 mGy FINDINGS: No suspicious pulmonary nodule. Evidence of old healedgranulomatous disease. No acute inflammatory process. Heart and mediastinumunremarkable. 5 cm upper pole left renal cyst. Simple cyst posterior segment right hepaticlobe. Coronary artery calcification: Mild. FOLLOW-UP CODE: Lung-RADS Category 1: Negative: No nodule or definitelybenign nodule(s). Continued ANNUAL LOW-DOSE SCREENING CT SCAN ([facility] [id number]suggested if age <78. Lung-RADS Modifier N/A: No Modifier Needed IMPRESSION: Unremarkable low-dose screening chest CT. RECOMMENDATION: Low Dose CT - 1 Yr A summary letter communicating these results will be mailed to thepatient's address of record. - Note: Radiology results need to be interpreted within a comprehensiveclinical context. If you have questions about the radiology report, please contactthe office of the ordering clinician. [email or web address] Garcia MD [facility] ORDERABLES Final Result * TSH REFLEX (04/25/2022 10:25 AM EDT) TSH Reflex 3.560 0.270 - 4.200 mcIU/mL 04/25/2022 4:23 PM EDT [facility] Blood VENOUS BLOOD / Unknown Venipuncture / Unknown 04/25/2022 10:25 AM EDT 04/25/2022 10:25 AM EDT Narrative [facility] [employer] - 04/25/2022 4:23 PM EDT Ingestion of porfirio doses of biotin (>5 mg/day) taken within 8 hours of drawing blood sample can interfere with this immunoassay test. Leonides Foster MD CHEMISTRY ORDERABLES Final Resul t [facility] [address] [facility] , [place] [address] * LIPID SCREEN (04/25/2022 10:25 AM EDT) Cholesterol 154 <200 mg/dL 04/25/2022 4:23 PM EDT [facility] Comment: < 200 Desirable 200 - 239 Borderline High >= 240 High Triglyceride 82 <150 mg/dL 04/25/2022 4:23 PM EDT [facility] Comment: < 150 Normal 150 - 199 Borderline High 200 - 499 High >= 500 Very High HDL 56 >=40 mg/dL 04/25/2022 4:23 PM EDT [facility] Comment: > 60 Optimal 40 - 60 Acceptable < 40 Low LDL Calculated 82 <100 mg/dL 04/25/2022 4:23 PM EDT [facility] Comment: < 100 Optimal 100 - 129 Near or above optimal 130 - 159 Borderline High 160 - 189 High >= 190 Very High Non-HDL-C Calculated 98 <=129 mg/dL 04/25/2022 4:23 PM EDT [facility] Comment: <130 Desirable 130-159 Above Desirable 160-189 Borderline High 190-219 High >= 220 Very High Fasting Specimen? Yes None 022 4:23 PM EDT [facility] Blood VENOUS BLOOD / Unknown Venipuncture / Unknown 04/25/2022 10:25 AM EDT 04/25/2022 10:25 AM EDT us Leonides Foster MD CHEMISTRY ORDERABLES Final Resul t [facility] [address] [facility] , [address] [place] [id number] [facility] [address] [place], [place] [id number] * (ABNORMAL) COMPREHENSIVE METABOLIC PANEL (04/25/2022 10:25 AM EDT) Sodium 138 136 - 145 mmol/L 04/25/2022 4:23 PM EDT [facility] Potassium 3.9 3.5 - 5.0 mmol/L 04/25/2022 4:23 PM EDT [facility] Chloride 99 98 - 107 mmol/L 04/25/2022 4:23 PM EDT [facility] Total CO2 28 22 - 29 mmol/L 04/25/2022 4:23 PM EDT [facility] Anion Gap 11 7 - 16 mmol/L 04/25/2022 4:23 PM EDT [facility] Calcium 10.1 8.8 - 10.4 mg/dL 04/25/2022 4:23 PM EDT [facility] Glucose Lvl 107(H) 82 - 100 mg/dL 04/25/2022 4:23 PM EDT [facility] BUN 25(H) 8 - 23 mg/dL 04/25/2022 4:23 PM EDT [facility] Creatinine 1.02 0.51 - 1.30 mg/dL 04/25/2022 4:23 PM EDT [facility] Albumin 4.6 3.2 - 4.6 gm/dL 04/25/2022 4:23 PM EDT [facility] Total Protein 7.9 6.4 - 8.3 gm/dL 04/25/2022 4:23 PM EDT [facility] Bili Total 0.7 0.1 - 1.3 mg/dL 04/25/2022 4:23 PM EDT [facility] ALT 16 <=41 U/L 04/25/2022 4:23 PM EDT [facility] AST 18 <=40 U/L 04/25/2022 4:23 PM EDT [facility] Alk Phos 72 36 - 123 U/L 04/25/2022 4:23 PM EDT [facility] eGFR (CKD-EPIcr 2020) 57(L) >=60 mL/min/1.7 3 m2 04/25/2022 4:23 PM EDT [facility] Comment:Estimated GFR was ca lculated using the CKD-EPIcr (2020) equation refit without race. The equation is recommended by the National Kidney [employer] - [place] [employer] Neph[employer] Task Force. Blood VENOUS BLOOD / Unknown Venipuncture / Unknown 04/25/2022 10:25 AM EDT 04/25/2022 10:25 AM EDT us Leonides Foster MD CHEMISTRY ORDERABLES Final Resul t [facility] [address], [address] [place] [phone] [facility] [address] [place], [place] [phone] * CPAP TITRATION (05/17/2021 11:04 AM EDT) [facility] SLEEP OVERALL RESULT [facility] DATE OF STUDY 05/17/2021 [facility] Study Type Adult [facility] PATIENT WEIGHT 182.0 SE LAB APNEA INDEX 5.0 SE LAB Apnea Hypopnea Index 25.0 SE LAB RDI Index 25.0 SE LAB Central Apnea Index 5.0 SE LAB REM AHI [facility] Min O2 Saturation 81 SE LAB RDI REM [facility] RDI nonREM 21.7 [facility] CPAP Device [facility] CPAP Pressure n/a [facility] IPAP Pressure ? [facility] EPAP [facility] ? [facility] Auto Pressure Support 0 [facility] Supplemental O2 0 [facility] Mask Type Full Face [facility] Mask Size Medium [facility] APAP Range [facility] Auto-IPAP Max [facility] Auto[facility]IPAP Min [facility] Pressure Support [facility] PAP Compliance % [facility] Compliance Days [facility] Residual AHI [facility] PAP 90-95th Percentile [facility] 05/17/2021 11:0 4 AM EDT us Cass Leon MD SLEEP CENTER ORDERABLES Nidia arcos Result [facility] [address] [place] [address] * POLYSOMNOGRAPHY 4 OR MORE PARAMETERS (04/06/2021 9:57 AM EDT) [facility] SLEEP OVERALL RESULT [facility] DATE OF STUDY 04/06/2021 [facility] Study Type Adult [facility] PATIENT WEIGHT 182.0 SE LAB APNEA INDEX 0.0 SE LAB Apnea Hypopnea Index 38.3 SE LAB RDI Index 38.3 [facility] Central Apnea Index 0.0 SE LAB REM AHI [facility] Min O2 Saturation 78 SE LAB RDI REM [facility] RDI nonREM 37.4 [facility] CPAP Device Name [facility] CPAP Pressure [facility] IPAP Pressure [facility] EPAP Pressure [facility] Auto Pressure Support [facility] Supplemental O2 [facility] Mask Type [facility] Mask Size [facility] APAP Range [facility] Auto-IPAP Max [facility] Auto-IPAP Min [facility] Pressure Support [facility] PAP Compliance % [facility] Compliance Days [facility] Residual AHI [facility] PAP 90-95th Percentile [facility] LAB 04/06/2021 9:57 AM EDT us Cass Leon MD SLEEP CENTER ORDERABLES Nidia l Result [facility] [address] [place] [address] * CT CHEST WO CONTRAST (01/19/2021 1:32 PM EDT) Anatomical Region Laterality Modality Chest Computed Tomogra phy 01/19/2021 1:32 PM EDT Impressions 01/19/2021 2:03 PM EDT 1. Moderate-severe emphysema without edema or pneumonia. 2. Incidental findings as described Note: Radiology results need to be interpreted within a comprehensive clinical context. If you have questions about the radiology report, please contact the office of the ordering clinician. Narrative 01/19/2021 2:03 PM EDT CLINICAL HISTORY: J44.9-Chronic obstructive pulmonary disease, unspecified (HCC)-ICD-10-CM J44.9-Chronic obstructive pulmonary disease, unspecified (HCC)-ICD-10-CM R94.2-Abnormal results of pulmonary function [id number]-BAI-23-CM I27.81-Cor pulmonale (chronic) (HCC)-ICD-10-CM. COMPARISON: None. TECHNIQUE: CT CHEST WO CONTRAST on 01/19/2021 1:32 PM. FINDINGS: There is moderate-severe emphysema without a suspicious pulmonary nodule or focal consolidation. Benign granulomatous calcifications are noted. A small amount of mucus is in the trachea. There is no pneumothorax or pleural effusion. The heart size and pulmonary vascularity are normal and there is no pericardial effusion. Coronary artery and aortic valve calcifications are noted. The aorta and pulmonary arteries are normal in caliber. All thoracic lymph nodes are less than 1 cm in the short axis. The included thyroid gland and esophagus are normal. There is a small hiatal hernia. Simple cysts are in the left kidney and liver. A gallstone is in the gallbladder. There are degenerative changes in the scoliotic spine. Procedure Note Nato Palma MD - 01/19/2021 CLINICAL HISTORY: J44.9-Chronic obstructive pulmonary disease,unspecified (HCC)-ICD-10-CM J44.9-Chronic obstructive pulmonary disease, unspecified (HCC)-ICD-10-CM R94.2-Abnormal results of pulmonary function [id number]-BAO-23-CM I27.81-Cor pulmonale (chronic) (HCC)-ICD-10-CM. COMPARISON: None. TECHNIQUE: CT CHEST WO CONTRAST on 01/19/2021 1:32 PM. FINDINGS: There is moderate-severe emphysema without a suspiciouspulmonary nodule or focal consolidation. Benign granulomatous calcifications arenoted. A small amount of mucus is in the trachea. There is no pneumothorax orpleural effusion. The heart size and pulmonary vascularity are normal and there is nopericardial effusion. Coronary artery and aortic valve calcifications are noted. Theaorta and pulmonary arteries are normal in caliber. All thoracic lymph nodes areless than 1 cm in the short axis. The included thyroid gland and esophagus are normal. There is a smallhiatal hernia. Simple cysts are in the left kidney and liver. A gallstone is inthe gallbladder. There are degenerative changes in the scoliotic spine. IMPRESSION: 1. Moderate-severe emphysema without edema or pneumonia. 2. Incidental findings as described Note: Radiology results need to be interpreted within a comprehensiveclinical context. If you have questions about the radiology report, please contactthe office of the ordering clinician. Mason Garcia MD [facility] ORDERABLES Final Result * (ABNORMAL) PULMONARY FUNCTION TEST (11/22/2020 12:51 PM EDT) [facility] FVC_POST 1.97 1.79 - 3.20 L 11/24/2020 5:34 PM EDT [facility] FVC_PRE 1.64(L) 1.79 - 3.20 L 11/24/2020 5:34 PM EDT [facility] FVC_REF 2.47 11/24/2020 5:34 PM EDT [facility] FVC_LLN 1.79 11/24/2020 5:34 PM EDT [facility] FVC_Pre%REF 66 % 11/24/2020 5:34 PM EDT [facility] FVC_Post%REF 80 % 11/24/2020 5:34 PM EDT [facility] FVC_%Chng 20 % 11/24/2020 5:34 PM EDT [facility] FEV1_POST 0.76(L) 1.38 - 2.44 L 11/24/2020 5:34 PM EDT [facility] FEV1_PRE 0.76(L) 1.38 - 2.44 L 11/24/2020 5:34 PM EDT [facility] FEV1_REF 1.92 11/24/2020 5:34 PM EDT [facility] FEV1_LLN 1.38 11/24/2020 5:34 PM EDT [facility] FEV1_Pre%REF 40 % 11/24/2020 5:34 PM EDT [facility] FEV1_Post%REF 40 % 11/24/2020 5:34 PM EDT [facility] FEV1_%Chng -0 % 11/24/2020 5:34 PM EDT [facility] FEV1/FVC_POST 38.68(L) 64.47 - 90.03 % 11/24/2020 5:34 PM EDT [facility] FEV1/FVC_PRE 46.53(L) 64.47 - 90.03 % 11/24/2020 5:34 PM EDT [facility] FEV1/FVC_REF 78 11/24/2020 5:34 PM EDT [facility] FEV1/FVC_LLN 64 11/24/2020 5:34 PM EDT [facility] FEV1/FVC_Pre%R EF 60 % 11/24/2020 5:34 PM EDT [facility] FEV1/FVC_Post% REF 49 % 11/24/2020 5:34 PM EDT [facility] FEV1/FVC_%Chng -17 % 11/24/2020 5:34 PM EDT [facility] IND57-55%_POST 0.19(L) 0.75 - 2.98 L/s 11/24/2020 5:34 PM EDT [facility] WRL08-49%_PRE 0.19(L) 0.75 - 2.98 L/s 11/24/2020 5:34 PM EDT [facility] RSI23-96%_REF 1.66 11/24/2020 5:34 PM EDT [facility] MRH70-54%_LLN 0.75 11/24/2020 5:34 PM EDT [facility] IGH77-66%_Pre% REF 11 % 11/24/2020 5:34 PM EDT [facility] SHZ33-22%_Post %REF 11 % 11/24/2020 5:34 PM EDT [facility] XCY64-41%_%Chn g 0 % 11/24/2020 5:34 PM EDT [facility] PEF_POST 2.13(L) 3.49 - 6.60 L/s 11/24/2020 5:34 PM EDT [facility] PEF_PRE 2.33(L) 3.49 - 6.60 L/s 11/24/2020 5:34 PM EDT [facility] PEF_REF 5.04 11/24/2020 5:34 PM EDT [facility] PEF_LLN 3.49 11/24/2020 5:34 PM EDT [facility] PEF_Pre%REF 46 % 11/24/2020 5:34 PM EDT [facility] PEF_Post%REF 42 % 11/24/2020 5:34 PM EDT [facility] PEF_%Chng -9 % 11/24/2020 5:34 PM EDT [facility] DLCO_SB_PRE 8.56(L) 13.03 - 23.71 ml/(min*mm Hg) 11/24/2020 5:34 PM EDT [facility] DLCOSingleBrea th_REF 17.4 11/24/2020 5:34 PM EDT [facility] DLCOSingleBrea th_LLN 13.0 11/24/2020 5:34 PM EDT [facility] DLCOSingleBrea th_Pre%REF 49 % 11/24/2020 5:34 PM EDT [facility] VA_SB_PRE 3.06(L) 3.28 - 5.15 L 11/24/2020 5:34 PM EDT [facility] VASingleBreath _REF 4.12 11/24/2020 5:34 PM EDT [facility] VASingleBreath _LLN 3.28 11/24/2020 5:34 PM EDT [facility] VASingleBreath _Pre%REF 74 % 11/24/2020 5:34 PM EDT [facility] DL/VA_PRE 2.80(L) 3.23 - 5.42 ml/(min*mm Hg*L) 11/24/2020 5:34 PM EDT [facility] DLCO/VA_REF 4.25 11/24/2020 5:34 PM EDT [facility] DLCO/VA_LLN 3.23 11/24/2020 5:34 PM EDT [facility] DLCO/VA_Pre%RE F 66 % 11/24/2020 5:34 PM EDT [facility] IVC_SB_PRE 1.72(L) 1.79 - 3.20 L 11/24/2020 5:34 PM EDT [facility] Hb_PRE 15.40 g(Hb)/dL 11/24/2020 5:34 PM EDT [facility] IC_PRE 1.04(L) 1.63 - 1.63 L 11/24/2020 5:34 PM EDT [facility] IC_REF 1.63 11/24/2020 5:34 PM EDT [facility] IC_LLN 1.63 11/24/2020 5:34 PM EDT [facility] IC_Pre%REF 64 % 11/24/2020 5:34 PM EDT [facility] ERV_PRE 0.71(H) 0.59 - 0.59 L 11/24/2020 5:34 PM EDT [facility] ERV_REF 0.59 11/24/2020 5:34 PM EDT [facility] ERV_LLN 0.59 11/24/2020 5:34 PM EDT [facility] ERV_Pre%REF 122 % 11/24/2020 5:34 PM EDT [facility] RV_PRE 3.53(H) 1.38 - 2.53 L 11/24/2020 5:34 PM EDT [facility] RV_REF 1.96 11/24/2020 5:34 PM EDT [facility] RV_LLN 1.38 11/24/2020 5:34 PM EDT [facility] RV_Pre%REF 181 % 11/24/2020 5:34 PM EDT [facility] RV%TLC_PRE 66.77(H) 33.85 - 53.03 % 11/24/2020 5:34 PM EDT [facility] RV%TLC_REF 43 11/24/2020 5:34 PM EDT [facility] RV%TLC_LLN 34 11/24/2020 5:34 PM EDT [facility] RV%TLC_Pre%REF 154 % 11/24/2020 5:34 PM EDT [facility] FRCpl_PRE 4.25(H) 1.72 - 3.37 L 11/24/2020 5:34 PM EDT [facility] FRCpleth_REF 2.54 11/24/2020 5:34 PM EDT [facility] FRCpleth_LLN 1.72 11/24/2020 5:34 PM EDT [facility] FRCpleth_Pre%R EF 167 % 11/24/2020 5:34 PM EDT [facility] TLC_PRE 5.29 3.45 - 5.42 L 11/24/2020 5:34 PM EDT [facility] TLC_REF 4.44 11/24/2020 5:34 PM EDT [facility] TLC_LLN 3.45 11/24/2020 5:34 PM EDT [facility] TLC_Pre%REF 119 % 11/24/2020 5:34 PM EDT [facility] 11/22/2020 12:5 1 PM EDT Impressions [facility] - 11/24/2020 5:34 PM EDT SEVERE OBSTRUCTIVE VENTILATORY DEFECT There is a significant response to bronchodilator in the FVC The elevated RV reflects AIR TRAPPING. MODERATE DECREASE IN DIFFUSING CAPACITY, corrected for hemoglobin. THIS PATTERN SUGGEST EMPHYSEMA, but may be seen in other disorders. ?Clinical correlation recommended us Aiden Estrada MD PFT ORDERABLES Final Result [facility] [address] [place] [id number] * EXTRA LIGHT BLUE (10/24/2020 9:07 PM EDT) Blood VENOUS BLOOD / Unknown Venipuncture / Unknown 10/24/2020 9:07 PM EDT 10/24/2020 9:09 PM EDT Anselmo Jennings MD HEMATOLOGY ORDERABLES Final Re sult Performing Organization Address [facility] Co de Phone Number [facility] [address] [place] [address] * CORONAVIRUS 2019 POCT (10/24/2020 7:17 PM EDT) [facility] COV19 RNA POCT Negative Negative 10/24/2020 7:38 PM EDT [facility] Swab NASAL STRUCTURE / Unknown 10/24/2020 7:17 PM EDT 10/24/2020 7:22 PM EDT Narrative [facility] - 10/24/2020 7:38 PM EDT The ID NOW is an isothermal nucleic acid amplification assay used to detect nucleic acid from SARS-CoV-2 viral RNA and is intended for use under FDA Emergency Use Authorization only. Negative results do not preclude SARS-CoV-2 infection and should not be used as the sole basis for patient management decisions. Negative results must be combined with clinical observations, patient history, and epidemiological information. Recommend confirmation using alternate method if a negative result is inconsistent with clinical signs and symptoms or if necessary for patient management. Early ID NOW Provider Fact Sheet: https://www.fda.gov/media/298495/download Early ID NOW Patient Fact Sheet: https://www.fda.gov/media/736846/download Anselmo Jennings MD MICROBIOLOGY - GENERAL ORDERAB LES Final Result Performing Organization Address [facility] Co de Phone Number [facility] [address] [place] [address] * MM MAMMO DIGITAL SCREENING W CAD BILAT (01/27/2019 3:14 PM EDT) Only the most recent of4 resultswithin the time period is included. Anatomical Region Laterality Modality Breast Bilateral Mammography 01/28/2019 8:01 AM EDT Impressions 01/28/2019 8:01 AM EDT Negative ([id number]-Frdknttm-7) ~ RECOMMENDATION: Routine screening mammogram in 1 year. ~ DISCLAIMER * Any patient with a palpable abnormality, unexplained by breast imaging, should be managed on clinical basis by the attending physician. * Breast imaging has a false negative rate of 15%. * The patient was notified by mail of the results of this examination. *The patient's information was entered into a reminder system with a target due date for the next mammogram. The mammogram was reviewed by a Radiologist and CAD. Narrative 01/28/2019 8:01 AM EDT Procedure:MM MAMMO DIGITAL SCREENING W CAD BILAT ~ Reason for exam: screening, asymptomatic. Z12.31-Encounter for screening mammogram for malignant neoplasm of fbrjez-IBX-83-CM ~ MM MAMMO DIG SCREEN CAD BILAT Bilateral CC and MLO view(s) were taken. There are scattered fibroglandular densities. Prior study comparison: Compared with prior studies the most recent being 01/23/18, 01/09/18 01/25/2017, 01/17/2016. No mammographic evidence of malignancy. No suspicious calcifications. ~ Procedure Note Tristen Michele DO - 01/28/2019 Procedure:MM MAMMO DIGITAL SCREENING W CAD BILAT ~ Reason for exam: screening, asymptomatic. Z12.31-Encounter for screening mammogram for malignant neoplasm of gavjqj-IQC-24-CM ~ MM MAMMO DIG SCREEN CAD BILAT Bilateral CC and MLO view(s) were taken. There are scattered fibroglandular densities. Prior study comparison: Compared with prior studies the most recentbeing 01/23/18, 01/09/18 01/25/2017, 01/17/2016. No mammographic evidence of malignancy. No suspicious calcifications. ~ IMPRESSION: Negative (BLD-Brvpbidx-6) ~ RECOMMENDATION: Routine screening mammogram in 1 year. ~ DISCLAIMER * Any patient with a palpable abnormality, unexplained by breast imaging, should be managed on clinical basis by the attending physician. * Breast imaging has a false negative rate of 15%. * The patient was notified by mail of the results of this examination. *The patient's information was entered into a reminder system with atarget due date for the next mammogram. The mammogram was reviewed by a Radiologist and CAD. Leonides Foster MD [facility] [place] ORDERABLES Final Result * MM MAMMO DIGITAL MORE DIAGN LEFT (01/23/2018 12:56 PM EDT) Anatomical Region Laterality Modality Breast Left Mammography 01/26/2018 8:30 AM EDT Impressions 01/26/2018 4:32 PM EDT : Negative (AGL-Ekovxsdo-0) ~ RECOMMENDATION: Routine screening mammogram in 1 year. ~ DISCLAIMER * Any patient with a palpable abnormality, unexplained by breast imaging, should be managed on clinical basis by the attending physician. * Breast imaging has a false negative rate of 15%. * The patient was notified by mail of the results of this examination. *The patient's information was entered into a reminder system with a target due date for the next mammogram. Narrative 01/26/2018 4:32 PM EDT Procedure:MM MAMMO DIGITAL MORE DIAGN LEFT ~ Reason for exam: follow-up at short interval from prior study. ~ MM MAMMO DIGITAL MORE DIAGN LEFT CC and MLO view(s) were taken of the left breast. Technologist: Pari Dixon Prior study comparison: January 09, 2018, bilateral MM MAMMO DIG SCREEN CAD BILAT performed at [facility]. There are scattered fibroglandular densities. There are no suspicious masses, micro-calcifications or areas of architectural distortion in the left breast. The asymmetry compresses out on the additional views. ~ us Leonides Foster MD [facility] ORDERABLES Final Result * SD US LOWER EXTREMITY ARTERIAL PHYSIOLOGICAL (01/09/2018 10:59 AM EDT) Only the most recent of2 resultswithin the time period is included. Anatomical Region Laterality Modality Vascular, Leg Vascular Imaging 01/09/2018 10:1 1 AM EDT Impressions 01/09/2018 6:07 PM EDT CONCLUSIONS No evidence of arterial insufficiency identified in the bilateral lower extremities, at rest. Bilateral AJAY's are within normal limits. Digital pressures are above the healing index, bilaterally. Narrative Procedure Note Mraen Botello Jr., MD - 01/09/2018 IMPRESSION CONCLUSIONS No evidence of arterial insufficiency identified in the bilateral lowerextremities, at rest. Bilateral AJAY's are within normal limits. Digital pressures are above the healing index, bilaterally. Leonides Foster MD IM VASCULAR ORDERABLES Final Re sult * XR CHEST PA AND LATERAL (05/11/2017 1:24 PM EDT) Only the most recent of3 resultswithin the time period is included. Anatomical Region Laterality Modality Chest Radiographic Heather ging 05/11/2017 1:24 PM EDT Impressions 05/11/2017 1:59 PM EDT No acute chest process. Narrative 05/11/2017 1:59 PM EDT TWO VIEWS OF THE CHEST 05/11/2017 HISTORY: Shortness of breath. COMPARISON: August 06, 2015. FINDINGS: The heart is normal in size. The aorta is tortuous, associated with thoracic scoliosis, stable. The lungs are clear of infiltrate. The costophrenic angles are within normal limits. There is no pleural effusion. No pneumothorax. Procedure Note Serena May MD - 05/11/2017 TWO VIEWS OF THE CHEST 05/11/2017 HISTORY: Shortness of breath. COMPARISON: August 06, 2015. FINDINGS: The heart is normal in size. The aorta is tortuous, associatedwith thoracic scoliosis, stable. The lungs are clear of infiltrate. The costophrenic angles are withinnormal limits. There is no pleural effusion. No pneumothorax. IMPRESSION: No acute chest process. Eli ESTES DIAGNOSTIC IMAGING ORDERABL ES Final Result * DX BONE DENSITY AXIAL INCLUDING VERTEBRAL FRACTURE ASSESSMENT (09/27/2016 10:49 AM EST) Anatomical Region Laterality Modality Dexa Scan 09/27/2016 Narrative 09/27/2016 1:46 PM EST Indication: The patient is a female age 65 or older who requires a bone density assessment. Vertebral Fracture Assessment was performed per protocol. Study was performed on [employer]. Bone Density: Region BMD T-score Z-score AP Spine (L1, L2, L3) 0.866 -1.4 0.6 Femoral Neck (Left) 0.584 -2.4 -0.7 Total Hip (Left) 0.786 -1.3 0.1 Femoral Neck (Right) 0.730 -1.1 0.6 Total Hip (Right) 0.881 -0.5 0.9 1/3 Radius (Left) 0.651 -0.7 1.2 World Health Organization criteria for BMD interpretation classify patients as: Normal (T-score at or above -1.0), Low Bone Density (T-score between -1.0 and -2.5), or Osteoporotic (T-score at or below -2.5). T Scores are reported in Postmenopausal women and in men age 50 and older. Z-scores are reported in females prior to menopause and in males younger than age 50. 10-year Fracture Risk(1): Major Osteoporotic Fracture 12% Hip Fracture 2.5% Reported Risk Factors: [place] (), Neck BMD=0.584, BMI=35.3 (1) FRAX(R) Version 3.01. Fracture probability calculated for an untreated patient. Fracture probability may be lower if the patient has received treatment. Vertebral Deformity Assessment: Exam date 09/27/2016 Vertebral Level Impression T12 Normal L1 Normal L2 Normal L3 Normal L4 Normal A spine fracture indicates 5X risk for subsequent spine fracture and 2X risk for subsequent hip fracture. Clinical Information Provided by Patient: Has used or is currently using the following medications: Vitamin D, Thyroid medication Has had or currently has the following medical conditions: Asthma, Emphysema, or COPD Patient maximum height was 64.5 Menopause Age: 43 Interpretation: DXA: Bone mineral density is in the low bone density range. The spine portion of the study is limited by scoliosis and hypertrophic changes. Medical evaluation for secondary causes of low bone mineral density may be appropriate. A minimum of two years may be required between bone density studies due to inherent testing precision limitations. Intervals between BMD testing should be determined according to each patient's clinical status: typically one year after initiation or change in therapy is appropriate, with longer intervals once therapeutic effect is established. VFA: The scan is interpretable from T12 to L4. No vertebral fractures are identified. Visualization of remainder of thoracic vertebrae limited by prominent lung markings. Note: VFA is designed to detect vertebral fractures and not other abnormalities. Reported by: Crystal Wong PA-C, [facility] on 09/27/2016 1:30:00 PM. 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 Remainder of foot is intact. Procedure Note Ha Lizarraga MD - 03/23/2016 XR FOOT RIGHT AP LATERAL AND OBLIQUE 03/23/2016 10:40 AM HISTORY: Injury and Pain Other info: -LACERATION Comparison: None Small lucency seen along the medial aspect of the first distal phalangealbase but not confirmed in other projections, likely shipping services sales representative of a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 Remainder of foot is intact. Impression: Probable nondisplaced first distal phalangeal base fracture us Ravindra Doyle MD IMG DIAGNOSTIC IMAGI NG ORDERABLES Final Result * SCANNED RADIOLOGY REPORT (12/25/2015 11:19 AM EDT) Anatomical Region Laterality Modality Other 12/25/2015 11:1 9 AM EDT us Unknown Unknown IMG DIAGNOSTIC IMAGING ORDERABLE S Final Result * EC ECHOCARDIOGRAM EXERCISE STRESS W DOPPLER AND COLOR FLOW MAPPING (12/25/2015 10:49 AM EDT) Ejection Fraction 55-60 % PYRAMIS Anatomical Region Laterality Modality Electrocardiogra phy 12/25/2015 10:0 0 AM EDT Impressions 12/25/2015 11:08 AM EDT CONCLUSIONS Stress echo. Treadmill echo. Fair exercise tolerance, achieving 3.5 METS and 92% of max predicted heart rate. The resting phase of the study was normal. The global left ventricular systolic function improved with stress. No echocardiographic evidence of myocardial ischemia. REST Left ventricular cavity size normal. Mild concentric hypertrophy. No obvious regional wall motion abnormalities. Left ventricular ejection fraction is in the normal range. Mild tricuspid regurgitation. Tricuspid regurgitation regurgitant velocity is 2.4 m/sec. Right ventricular systolic pressure estimated at 24 + JVP mmHg. Trace to mild aortic regurgitation. Narrative Procedure Note Carlos Alberto Crandall MD - 12/25/2015 IMPRESSION CONCLUSIONS Stress echo. Treadmill echo. Fair exercise tolerance, achieving 3.5 METS and 92% of max predictedheart rate. The resting phase of the study was normal. The global left ventricular systolic function improved with stress. No echocardiographic evidence of myocardial ischemia. REST Left ventricular cavity size normal. Mild concentric hypertrophy. Noobvious regional wall motion abnormalities. Left ventricular ejection fraction is in the normal range. Mild tricuspid regurgitation. Tricuspid regurgitation regurgitantvelocity is 2.4 m/sec. Right ventricular systolic pressure estimated at 24 + JVP mmHg. Trace to mild aortic regurgitation. Carlos Alberto Crandall MD IMG ECHO ORDERABLES Final Re sult * ST STRESS TEST EXERCISE (12/25/2015 10:40 AM EDT) Anatomical Region Laterality Modality Electrocardiogra phy 12/25/2015 9:49 AM EDT Impressions 12/25/2015 11:04 AM EDT Exercise ECG Report [facility] Interpretive Statements Type of Test: Exercise Reason for Exam: Abnormal EKG, SOB Ordering Diagnosis: Abnormal EKG, SOB Resting HR: 86 Peak HR: 140 Resting B/P 126/80 Peak B/P 188/88 1. METS achieved 3.5 2. WALKED 4:01 MINUTES ON MODIFIED ASHLEY PROTOCOL 3. Target HR was achieved. Reached heart rate of 140, which is 92% of age predicted target heart rate. 4. Termination of test due to shortness of breath and fatigue. 5. Symptoms: short of breath with exercise. No chest pain. 6. Echo imaging pending. 7. Resting EK. Arrhythmias: 9. Conclusion: Blood Pressure Response to Exercise is :Normal Exercise Capacity adjusted for age is: Fair Comment on Resting EKG: SR VPBs, otherwise normal. Arrhythmias: None Conclusion: Normal EKG Response Electronically Signed On 12-25-2015 11:04:08 EDT by Carlos Alberto Crandall Narrative Procedure Note Carlos Alberto Crandall MD - 12/25/2015 IMPRESSION Exercise ECG Report [facility] Interpretive Statements Type of Test: Exercise Reason for Exam: Abnormal EKG, SOB Ordering Diagnosis: Abnormal EKG, SOB Resting HR: 86 Peak HR: 140 Resting B/P 126/80 Peak B/P 188/88 1. METS achieved 3.5 2. WALKED 4:01 MINUTES ON MODIFIED ASHLEY PROTOCOL 3. Target HR was achieved. Reached heart rate of 140, which is 92% ofage predicted target heart rate. 4. Termination of test due to shortness of breath and fatigue. 5. Symptoms: short of breath with exercise. No chest pain. 6. Echo imaging pending. 7. Resting EK. Arrhythmias: 9. Conclusion: Blood Pressure Response to Exercise is :Normal Exercise Capacity adjusted for age is: Fair Comment on Resting EKG: SR VPBs, otherwise normal. Arrhythmias: None Conclusion: Normal EKG Response Electronically Signed On 12-25-2015 11:04:08 EDT by Carlos Alberto Crandall us Carlos Alberto Crandall MD IMG STRESS ORDERABLES Final Result * POCT EKG (11/24/2015 8:14 AM EDT) 11/24/2015 8:14 AM EDT Impressions SEP OFFICE - 11/24/2015 8:14 AM EDT Sinus rhythm Normal ECG [place] Carlos Alberto Crandall MD POINT OF CARE CARDIOLOGY Fin al Result Performing Organization Address [facility] de Phone Number SEP OFFICE * SCANNED RHYTHM STRIPS (08/10/2015 2:45 PM EST) Only the most recent of2 resultswithin the time period is included. Anatomical Region Laterality Modality Other 08/10/2015 2:45 PM EST Unknown Unknown IMG ECG ORDERABLES Final Result * TROPONIN-T (08/06/2015 9:39 PM EST) Only the most recent of5 resultswithin the time period is included. [facility] Troponin-T <0.01 <=0.00 ng/mL [facility] Comment: Values > or = 0.01 ng/mL have been shown to have prognostic value. Blood specimen (specimen) 08/06/2015 9:39 PM EST 08/06/2015 9:42 PM EST Neymar Damon DO CHEMISTRY ORDERABLES Final Re sult Performing Organization Address [facility] de Phone Number [facility] [address] [place] [address] * DIFFERENTIAL (08/06/2015 3:25 PM EST) Only the most recent of2 resultswithin the time period is included. Neut Percent 66.6 % [facility] Lymph Percent 19.4 % [facility] Pike Percent 10.1 % [facility] Eos Percent 2.7 % [facility] Baso Percent 1.2 % [facility] Neut# 5.9 1.8 - 7.7 x10(3)/[facility] Lymph# 1.7 0.6 - 4.8 x10(3)/[facility] Pike# 0.9 0.0 - 1.3 x10(3)/[facility] Eos# 0.2 0.0 - 0.5 x10(3)/[facility] Baso# 0.1 0.0 - 0.2 x10(3)/[facility] Blood specimen (specimen) 08/06/2015 3:25 PM EST 08/06/2015 3:35 PM EST [facility] HEMATOLOGY ORDERABL ES Final Result [facility] [address] [facility] [place], [place] [id number] * MM MOBILE MAMMO DIGITAL SCREEN W CAD MINDY (01/15/2012 11:05 AM EDT) Anatomical Region Laterality Modality Breast Mammography 01/16/2012 8:08 AM EDT Impressions 01/16/2012 8:56 AM EDT : No radiographic evidence of malignancy ([id number]) ~ RECOMMENDATION: Routine screening mammogram in 1 year. ~ * The patient with a palpable abnormality, unexplained by breast imaging, should be managed on clinical basis by the attending physician. * Breast imaging has a false negative rate of 15%. * The patient was notified by mail of the results of this examination. *The patient's information was entered into a reminder system with a target due date for the next mammogram. The mammogram was reviewed by a Radiologist and CAD. Narrative 01/16/2012 8:56 AM EDT Procedure:MM MOBILE MAMMO DIGITAL SCREEN W CAD MINDY ~ Reason for exam: screening (asymptomatic). ~ MM MOBILE MAMMO DIGITAL SCREEN W CAD MINDY Bilateral CC and MLO view(s) were taken. There are scattered fibroglandular densities. No suspicious calcifications. ~ Procedure Note Gil Miller MD - 01/16/2012 Procedure:MM MOBILE MAMMO DIGITAL SCREEN W CAD MINDY ~ Reason for exam: screening (asymptomatic). ~ MM MOBILE MAMMO DIGITAL SCREEN W CAD MINDY Bilateral CC and MLO view(s) were taken. There are scattered fibroglandular densities. No suspicious calcifications. ~ IMPRESSION: No radiographic evidence of malignancy (UTS-[id number]-1) ~ RECOMMENDATION: Routine screening mammogram in 1 year. ~ * The patient with a palpable abnormality, unexplained by breast imaging, should be managed on clinical basis by the attending physician. * Breast imaging has a false negative rate of 15%. * The patient was notified by mail of the results of this examination. *The patient's information was entered into a reminder system with atarget due date for the next mammogram. The mammogram was reviewed by a Radiologist and CAD. us Wilner Beauchamp MD IMG MAMMOGRAPHY ORDERABL ES Final Result * XR CHEST PA & LAT (10/04/2009 12:00 AM EST) Only the most recent of2 resultswithin the time period is included. Anatomical Region Laterality Modality Other 10/04/2009 10/04/2009 Narrative 10/04/2009 12:00 AM EST Name: DANGELO Lerma : 1950 VERIFIED [facility] Reason: COPD Dict.Staff: TRISTEN MICHELE [id number] Verified By: MAREN MENENDEZ Ronni: 10/05/09 8:02 pm Exams: DIAG-CHEST PA & LATERAL PA/LATERAL CHEST: HISTORY: COPD. Cough. COMPARISON: 05/28/2007 exam. Prominent rotoscoliotic curvature of the thoracic spine is again noted. The heart and mediastinum remain unchanged. Densely calcified left hilar and subcarinal lymph nodes. Diffuse COPD lung change. No focal lung consolidation or pleural effusion. Diffuse osteopenia noted with chronic endplate deformities of the mid/lower thoracic spine. IMPRESSION: Prominent thoracic scoliotic curvature with chronic degenerative change. COPD. No acute process. LENY/emma Dictated 10/04/2009 at 11:33. end of result Procedure Note Unknown, U - 11/24/2009 Name: DANGELO Lerma : 1950 VERIFIED [facility] Reason: COPD Dict.Staff: TRISTEN MICHELE [id number] Verified By: MAREN MENENDEZ Ronni: 10/05/09 8:02 pm Exams: DIAG-CHEST PA & LATERAL PA/LATERAL CHEST: HISTORY: COPD. Cough. COMPARISON: 05/28/2007 exam. Prominent rotoscoliotic curvature of the thoracic spine is again noted. The heart and mediastinum remain unchanged. Densely calcified left hilar and subcarinal lymph nodes. Diffuse COPD lung change. No focal lung consolidation or pleural effusion. Diffuse osteopenia noted with chronic endplate deformities of the mid/lower thoracic spine. IMPRESSION: Prominent thoracic scoliotic curvature with chronic degenerative change. COPD. No acute process. LENY/emma Dictated 10/04/2009 at 11:33. end of result us U Unknown [facility]G [facility] RAD HISTORICAL Final Result * MR ANGIO HEAD W/O CONTRAST MRI (12/22/2007 12:00 AM EDT) Anatomical Region Laterality Modality Other 12/22/2007 12/22/2007 Narrative 12/22/2007 12:00 AM EDT Name: DANGELO Lerma : 1950 VERIFIED [facility] Reason: BLURRED VISION, TRANSIENT CONFUSION Dict.Staff: SERENA LUONG [id number] Verified By: SERENA LUONG Ronni: 12/22/07 1:02 pm Exams: MRI-HEAD W/O CONTRAST MRI-ANGIO HEAD W/O CONTRAST MR HEAD WITHOUT CONTRAST: 12/22/07 HISTORY: BLURRED VISION, TRANSIENT CONFUSION COMPARISON: CT HEAD, 12/21/07. Cerebellar tonsils within normal limits in position. Signal voids seen in vertebral, basilar, and internal carotid arteries. Ventricles normal in size and position. Diffusion weighted images show no acute findings. OPINION: NO ACUTE FINDINGS. NORMAL STUDY. AG/stefano DICTATED ON DECEMBER 22, 2007 @08:19 hours. MR ANGIO HEAD: HISTORY: BLURRED VISION, TRANSIENT CONFUSION flow seen in the vertebral, basilar, internal carotid, anterior cerebral, middle cerebral, and posterior cerebral arteries. No aneurysm or flow significant stenosis. OPINION: NORMAL. NEILS/stefano DICTATED ON DECEMBER 22, 2007 @08:19 hours. end of result Procedure Note Unknown, U - 11/24/2009 Name: DANGELO Lerma : 1950 VERIFIED [facility] Reason: BLURRED VISION, TRANSIENT CONFUSION Dict.Staff: SERENA LUONG [id number] Verified By: SERENA LUONG Ronni: 12/22/07 1:02 pm Exams: MRI-HEAD W/O CONTRAST MRI-ANGIO HEAD W/O CONTRAST MR HEAD WITHOUT CONTRAST: 12/22/07 HISTORY: BLURRED VISION, TRANSIENT CONFUSION COMPARISON: CT HEAD, 12/21/07. Cerebellar tonsils within normal limits in position. Signal voids seen in vertebral, basilar, and internal carotid arteries. Ventricles normal in size and position. Diffusion weighted images show no acute findings. OPINION: NO ACUTE FINDINGS. NORMAL STUDY. NEILS/stefano DICTATED ON DECEMBER 22, 2007 @08:19 hours. MR ANGIO HEAD: HISTORY: BLURRED VISION, TRANSIENT CONFUSION flow seen in the vertebral, basilar, internal carotid, anterior cerebral, middle cerebral, and posterior cerebral arteries. No aneurysm or flow significant stenosis. OPINION: NORMAL. NEILS/stefano DICTATED ON DECEMBER 22, 2007 @08:19 hours. end of result us U Unknown [facility] RAD HISTORICAL Final Result * MR ANGIO NECK W/O CONTRAST MRI (12/21/2007 12:00 AM EDT) Anatomical Region Laterality Modality Other 12/21/2007 12/21/2007 Narrative 12/21/2007 12:00 AM EDT Name: DANGELO Lerma : 1950 VERIFIED [facility] Reason: BLURRED VISION, CONFUSION Dict.Staff: SERENA LUONG [id number] Verified By: SERENA LUONG Ronni: 12/22/07 1:02 pm Exams: MRI-ANGIO NECK W/O CONTRAST MRI OF THE NECK: 12-22-07 History: Blurred vision and confusion. TOTAL OF 20cc Magnevist administered. Evidence of flow is seen in the internal and external carotid arteries bilaterally. Flow significant stenosis is seen in these vessels. Evidence of flow is also is noted in the subclavian, common carotid, and vertebral arteries bilaterally as well as in the innominate artery. OPINION: There is no evidence of flow significant carotid artery stenosis. AG:joe DISCUSSION: 8:34 end of result Procedure Note Unknown, U - 11/24/2009 Name: DANGELO Lerma : 1950 VERIFIED [facility] Reason: BLURRED VISION, CONFUSION Dict.Staff: SERENA LUONG [id number] Verified By: SERENA LUONG Ronni: 12/22/07 1:02 pm Exams: MRI-ANGIO NECK W/O CONTRAST MRI OF THE NECK: 12-22-07 History: Blurred vision and confusion. TOTAL OF 20cc Magnevist administered. Evidence of flow is seen in the internal and external carotid arteries bilaterally. Flow significant stenosis is seen in these vessels. Evidence of flow is also is noted in the subclavian, common carotid, and vertebral arteries bilaterally as well as in the innominate artery. OPINION: There is no evidence of flow significant carotid artery stenosis. AG:joe DISCUSSION: 8:34 end of result us U Unknown [facility] RAD HISTORICAL Final Result * MR HEAD W/O CONTRAST MRI (12/21/2007 12:00 AM EDT) Anatomical Region Laterality Modality Other 12/21/2007 12/21/2007 Narrative 12/21/2007 12:00 AM EDT Name: DANGELO Lerma : 1950 VERIFIED [facility] Reason: BLURRED VISION, TRANSIENT CONFUSION Dict.Staff: SERENA LUONG [id number] Verified By: SERENA LUONG Ronni: 12/22/07 1:02 pm Exams: MRI-HEAD W/O CONTRAST MRI-ANGIO HEAD W/O CONTRAST MR HEAD WITHOUT CONTRAST: 12/22/07 HISTORY: BLURRED VISION, TRANSIENT CONFUSION COMPARISON: CT HEAD, 12/21/07. Cerebellar tonsils within normal limits in position. Signal voids seen in vertebral, basilar, and internal carotid arteries. Ventricles normal in size and position. Diffusion weighted images show no acute findings. OPINION: NO ACUTE FINDINGS. NORMAL STUDY. NEILS/stefano DICTATED ON DECEMBER 22, 2007 @08:19 hours. MR ANGIO HEAD: HISTORY: BLURRED VISION, TRANSIENT CONFUSION flow seen in the vertebral, basilar, internal carotid, anterior cerebral, middle cerebral, and posterior cerebral arteries. No aneurysm or flow significant stenosis. OPINION: NORMAL. NEILS/stefano DICTATED ON DECEMBER 22, 2007 @08:19 hours. end of result Procedure Note Unknown, U - 11/24/2009 Name: DANGELO Lerma : 1950 VERIFIED [facility] Reason: BLURRED VISION, TRANSIENT CONFUSION Dict.Staff: SERENA LUONG [id number] Verified By: SERENA LUONG Ronni: 12/22/07 1:02 pm Exams: MRI-HEAD W/O CONTRAST MRI-ANGIO HEAD W/O CONTRAST MR HEAD WITHOUT CONTRAST: 12/22/07 HISTORY: BLURRED VISION, TRANSIENT CONFUSION COMPARISON: CT HEAD, 12/21/07. Cerebellar tonsils within normal limits in position. Signal voids seen in vertebral, basilar, and internal carotid arteries. Ventricles normal in size and position. Diffusion weighted images show no acute findings. OPINION: NO ACUTE FINDINGS. NORMAL STUDY. NEILS/stefano DICTATED ON DECEMBER 22, 2007 @08:19 hours. MR ANGIO HEAD: HISTORY: BLURRED VISION, TRANSIENT CONFUSION flow seen in the vertebral, basilar, internal carotid, anterior cerebral, middle cerebral, and posterior cerebral arteries. No aneurysm or flow significant stenosis. OPINION: NORMAL. NEILS/stefano DICTATED ON DECEMBER 22, 2007 @08:19 hours. end of result us U Unknown [facility] RAD HISTORICAL Final Result * CT HEAD W/O CONTRAST (12/21/2007 12:00 AM EDT) Anatomical Region Laterality Modality Other 12/21/2007 12/21/2007 Narrative 12/21/2007 12:00 AM EDT Name: DANGELO Lerma : 1950 VERIFIED [facility] Reason: DIZZY- BLURRED VISON Dict.Staff: SERENA MAY [id number] Verified By: SERENA LUONG Ronni: 12/22/07 4:10 pm Exams: CT-HEAD W/O CONTRAST CT HEAD W/O CONTRAST: 12-21-07 Indication: Dizziness, blurred vision. The ventricular system is within normal limits. No mass effect or extra-axial collection is demonstrated. No areas of abnormal brain attenuation are identified. IMPRESSION: Normal CT head without contrast. ERASMO:joe Dictated 12-21-07 @ 18:22 Study acquisition 18:20 hours, telephoned report 18:26 hours. end of result Procedure Note Unknown, U - 11/24/2009 Name: DANGELO Lerma : 1950 VERIFIED [facility] Reason: DIZZY- BLURRED VISON Dict.Staff: SERENA MAY [id number] Verified By: SERENA LUONG Ronni: 12/22/07 4:10 pm Exams: CT-HEAD W/O CONTRAST CT HEAD W/O CONTRAST: 12-21-07 Indication: Dizziness, blurred vision. The ventricular system is within normal limits. No mass effect or extra-axial collection is demonstrated. No areas of abnormal brain attenuation are identified. IMPRESSION: Normal CT head without contrast. ERASMO:joe Dictated 12-21-07 @ 18:22 Study acquisition 18:20 hours, telephoned report 18:26 hours. end of result us U Unknown [facility] HISTORICAL Final Result Visit Diagnoses Diagnosis Start Date Other screening mammogram 01/15/2012 Shortness of breath 11/16/2014 Peripheral vascular disease, unspecified 11/29/2014 Stomatitis Stomatitis and mucositis, unspecified 05/13/2015 Bronchitis Bronchitis, not specified as acute or chronic 08/06/2015 Wheezing 08/06/2015 Asthma exacerbation in COPD (HCC) Chronic obstructive asthma with exacerbation 08/06/2015 Allergic reaction caused by a drug Other drug allergy 08/06/2015 Moderate persistent asthma with acute exacerbation 11/24/2015 Abnormal ECG Nonspecific abnormal electrocardiogram (ECG) (EKG) 11/24/2015 Essential hypertension Unspecified essential hypertension 11/24/2015 Family history of early CAD Family history of ischemic heart disease 11/24/2015 Essential hypertension Unspecified essential hypertension 12/13/2015 Family history of early CAD Family history of ischemic heart disease 12/13/2015 Abnormal ECG Nonspecific abnormal electrocardiogram (ECG) (EKG) 12/13/2015 Wheezing 12/13/2015 Family history of early CAD Family history of ischemic heart disease 12/25/2015 Essential hypertension Unspecified essential hypertension 12/25/2015 Abnormal ECG Nonspecific abnormal electrocardiogram (ECG) (EKG) 12/25/2015 Smoking greater than 30 pack years Tobacco use disorder 12/25/2015 Moderate persistent asthma with acute exacerbation 12/25/2015 Wheezing 12/25/2015 Moderate persistent asthma with acute exacerbation 12/25/2015 Abnormal ECG Nonspecific abnormal electrocardiogram (ECG) (EKG) 12/25/2015 Essential hypertension Unspecified essential hypertension 12/25/2015 Family history of early CAD Family history of ischemic heart disease 12/25/2015 Moderate persistent asthma with acute exacerbation 12/25/2015 Abnormal ECG Nonspecific abnormal electrocardiogram (ECG) (EKG) 12/25/2015 Essential hypertension Unspecified essential hypertension 12/25/2015 Family history of early CAD Family history of ischemic heart disease 12/25/2015 Visit for screening mammogram Other screening mammogram 01/17/2016 Foot laceration, right, initial encounter 03/23/2016 Closed nondisplaced fracture of distal phalanx of right great toe, initial encounter 03/23/2016 Pain of toe of right foot Pain in limb 04/02/2016 Fracture of right foot, closed, initial encounter 04/02/2016 Laceration Open wound(s) (multiple) of unspecified site(s), without mention of complication 04/02/2016 Senile osteoporosis 09/27/2016 Encounter for screening mammogram for malignant neoplasm of breast Other screening mammogram 01/15/2017 Right otitis media, unspecified chronicity, unspecified otitis media type 05/11/2017 COPD exacerbation (HCC) Obstructive chronic bronchitis with exacerbation 05/11/2017 Encounter for screening mammogram for malignant neoplasm of breast Other screening mammogram 01/09/2018 Peripheral vascular disease, unspecified 01/09/2018 Breast density Other sign and symptom in breast 01/23/2018 Encounter for screening mammogram for malignant neoplasm of breast Other screening mammogram 01/27/2019 COPD exacerbation (HCC) Obstructive chronic bronchitis with exacerbation 10/24/2020 Hypoxia Hypoxemia 10/24/2020 COPD with acute exacerbation (HCC) Obstructive chronic bronchitis with exacerbation 10/24/2020 COPD with acute exacerbation (HCC) Obstructive chronic bronchitis with exacerbation 11/22/2020 Edema leg Edema 12/08/2020 Essential hypertension Unspecified essential hypertension 12/08/2020 COPD with acute exacerbation (HCC) Obstructive chronic bronchitis with exacerbation 12/08/2020 Wheezing 12/08/2020 Former smoker Personal history of tobacco use, presenting hazards to health 12/08/2020 Smoking greater than 30 pack years Tobacco use disorder 12/08/2020 Moderate persistent asthma with acute exacerbation 12/08/2020 COPD with acute exacerbation (HCC) Obstructive chronic bronchitis with exacerbation 01/09/2021 Asthma-COPD overlap syndrome (HCC) 01/09/2021 COPD, group D, by GOLD 2017 classification ([facility]) 01/09/2021 LULÚ (obstructive sleep apnea) Obstructive sleep apnea (adult) (pediatric) 01/09/2021 Decreased diffusion capacity of lung Other specified alveolar and parietoalveolar pneumonopathies 01/09/2021 Cor pulmonale (HCC) Chronic pulmonary heart disease, unspecified 01/09/2021 Shortness of breath Shortness of breath 01/09/2021 Asthma-COPD overlap syndrome (HCC) 01/19/2021 COPD, group D, by GOLD 2017 classification ([facility]) 01/19/2021 Decreased diffusion capacity of lung Other specified alveolar and parietoalveolar pneumonopathies 01/19/2021 Cor pulmonale (HCC) Chronic pulmonary heart disease, unspecified 01/19/2021 Tiredness Other malaise and fatigue 02/20/2021 Snoring Other dyspnea and respiratory abnormality 02/20/2021 Centrilobular emphysema (HCC) Other emphysema 02/20/2021 Shortness of breath Shortness of breath 02/21/2021 Decreased diffusion capacity of lung Other specified alveolar and parietoalveolar pneumonopathies 02/21/2021 Cor pulmonale (HCC) Chronic pulmonary heart disease, unspecified 02/21/2021 COPD, group D, by GOLD 2017 classification ([facility]) 03/12/2021 Asthma-COPD overlap syndrome (HCC) 03/12/2021 Mild pulmonary hypertension (HCC) Other chronic pulmonary heart diseases 03/12/2021 LULÚ (obstructive sleep apnea) Obstructive sleep apnea (adult) (pediatric) 03/12/2021 Tiredness Other malaise and fatigue 04/06/2021 Snoring Other dyspnea and respiratory abnormality 04/06/2021 Obstructive sleep apnea Obstructive sleep apnea (adult) (pediatric) 04/06/2021 Encounter for screening mammogram for malignant neoplasm of breast Other screening mammogram 05/01/2021 Obstructive sleep apnea Obstructive sleep apnea (adult) (pediatric) 05/01/2021 Centrilobular emphysema (HCC) Other emphysema 05/01/2021 Obstructive sleep apnea Obstructive sleep apnea (adult) (pediatric) 05/17/2021 Asthma-COPD overlap syndrome (HCC) 07/26/2021 COPD, group D, by GOLD 2017 classification ([facility]) 07/26/2021 Chronic respiratory failure with hypoxia (HCC) Chronic respiratory failure 07/26/2021 Other secondary pulmonary hypertension -due to COPD, sleep apnea, obesity 07/26/2021 Asthma-COPD overlap syndrome (HCC) 11/13/2021 Personal history of nicotine dependence Personal history of tobacco use, presenting hazards to health 11/13/2021 Obstructive sleep apnea Obstructive sleep apnea (adult) (pediatric) 12/14/2021 Essential hypertension Unspecified essential hypertension 12/14/2021 Hypothyroidism, unspecified type 12/14/2021 Other secondary pulmonary hypertension (HCC) 12/14/2021 Chronic respiratory failure with hypoxia (HCC) Chronic respiratory failure 12/14/2021 Smokers' cough (HCC) Simple chronic bronchitis 12/14/2021 COPD, mild (HCC) Chronic airway obstruction, not elsewhere classified 12/14/2021 Hypothyroidism, unspecified type 04/25/2022 Encounter for screening mammogram for malignant neoplasm of breast Other screening mammogram 04/25/2022 Personal history of nicotine dependence Personal history of tobacco use, presenting hazards to health 05/13/2022 Asthma-COPD overlap syndrome (HCC) 05/30/2022 Hypoxia Hypoxemia 07/24/2022 Tachypnea 07/24/2022 Tachycardia Tachycardia, unspecified 07/24/2022 Exposure to the flu Contact with or exposure to other viral diseases 07/24/2022 Influenza A Influenza with other respiratory manifestations 07/24/2022 Respiratory distress Other dyspnea and respiratory abnormality 07/24/2022 Lung nodule Solitary pulmonary nodule 08/06/2022 PAF (paroxysmal atrial fibrillation) (HCC) Atrial fibrillation 09/10/2022 Screening for malignant neoplasm of respiratory organ Special screening for malignant neoplasm of the respiratory organs 10/30/2022 Personal history of tobacco use, presenting hazards to health 10/30/2022 Lung nodule Solitary pulmonary nodule 10/30/2022 Obstructive sleep apnea Obstructive sleep apnea (adult) (pediatric) 12/13/2022 Obstructive sleep apnea Obstructive sleep apnea (adult) (pediatric) 12/13/2022 Tiredness Other malaise and fatigue 12/13/2022 Asthma-COPD overlap syndrome (HCC) 12/13/2022 COPD, group D, by GOLD 2017 classification (HCC) 12/13/2022 Essential hypertension Unspecified essential hypertension 12/13/2022 Atrial fibrillation with rapid ventricular response (HCC) Atrial fibrillation 12/13/2022 Hypothyroidism, unspecified type 12/13/2022 Asthma-COPD overlap syndrome (HCC) 01/01/2023 Post-nasal drip Postnasal drip 01/01/2023 Rib contusion, right, initial encounter 03/08/2023 Contusion of abdominal wall, initial encounter 03/08/2023 Fall, initial encounter 03/08/2023 Diverticulosis Diverticulosis of colon (without mention of hemorrhage) 03/08/2023 UPJ (ureteropelvic junction) obstruction Other ureteric obstruction 03/08/2023 Renal cyst Unspecified congenital cystic kidney disease 03/08/2023 Hepatic cyst Other specified disorders of liver 03/08/2023 Calculus of gallbladder without cholecystitis without obstruction Calculus of gallbladder without mention of cholecystitis or obstruction 03/08/2023 Encounter for screening mammogram for malignant neoplasm of breast Other screening mammogram 06/27/2023 Asthma-COPD overlap syndrome (HCC) 07/07/2023 Post-nasal drip Postnasal drip 07/07/2023 Chronic respiratory failure with hypoxia (HCC) Chronic respiratory failure 07/07/2023 COPD with acute exacerbation (HCC) Obstructive chronic bronchitis with exacerbation 07/07/2023 Allergic reaction caused by a drug Other drug allergy 08/06/2015 Wheezing 08/06/2015 Asthma exacerbation in COPD (HCC) Chronic obstructive asthma with exacerbation 08/06/2015 Bronchitis Bronchitis, not specified as acute or chronic 08/06/2015 Moderate persistent asthma with acute exacerbation 08/06/2015 Smoking greater than 30 pack years Tobacco use disorder 08/06/2015 Acute respiratory failure with hypoxemia (HCC) 10/24/2020 COPD with acute exacerbation (HCC) Obstructive chronic bronchitis with exacerbation 10/24/2020 Moderate persistent asthma with acute exacerbation 10/24/2020 Essential hypertension Unspecified essential hypertension 10/24/2020 Former smoker Personal history of tobacco use, presenting hazards to health 10/24/2020 Smoking greater than 30 pack years Tobacco use disorder 10/24/2020 Acute bronchitis 10/24/2020 Acquired hypothyroidism Unspecified hypothyroidism 10/24/2020 Influenza A Influenza with other respiratory manifestations 07/24/2022 Acute on chronic respiratory failure with hypoxia (HCC) 07/24/2022 Hyponatremia Hyposmolality and/or hyponatremia 07/24/2022 Essential hypertension Unspecified essential hypertension 07/24/2022 COPD with acute exacerbation (HCC) Obstructive chronic bronchitis with exacerbation 07/24/2022 Elevated brain natriuretic peptide (BNP) level Other nonspecific findings on examination of blood 07/24/2022 SIRS (systemic inflammatory response syndrome) (HCC) Systemic inflammatory response syndrome, unspecified 07/24/2022 Atrial fibrillation with rapid ventricular response (HCC) Atrial fibrillation 07/24/2022 Care Teams 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
== END 2025-04-06 23:59 | disposition home or self-care (01) ==
LOC: LAB.DROPOF 04-07 12:42
PROVIDERS: PCP Nurse Practitioner; Visit Provider Nurse Practitioner
DX: I73.9 Peripheral vascular disease, unspecified (principal); I10 Essential (primary) hypertension; E07.9 Disorder of thyroid, unspecified; Z11.59 Encounter for screening for other viral diseases
CPT/HCPCS: 80053; 80061; 82043; 82570; 84439; 84443; 85025; 86803; 87389